=== PATIENT | female | born 1990 | race African-American/Black ===

== ENCOUNTER 2017-11-02 17:02 | Emergency (ER) | payer OTHER ==
--- NOTE | 2017-11-02 18:50 | ER Document Report ---
ED Hand/Wrist Injury - General Chief Complaint: Finger Injury Stated Complaint: RING STUCK ON FINGER Time Seen by Provider: 11/02/17 18:44 Mode of Arrival: Ambulatory Information source: Patient TRAVEL OUTSIDE OF THE [place] IN LAST 30 DAYS: No - HPI Patient complains to provider of: ring stuck on finger Injury to: Ring finger - there was no trauma to finger -- pt just unable to get ring off - Related Data Allergies/Adverse Reactions: No Known Allergies Allergy (Unverified 11/02/17 17:06) Past Medical History - Social History Smoking Status: Smoker,Current Status Unk Chew tobacco use (# tins/day): No Frequency of alcohol use: Occasional Drug Abuse: None Family History: None Patient has suicidal ideation: No Patient has homicidal ideation: No Renal/ Medical History: Denies: Hx Peritoneal Dialysis Review of Systems - Review of Systems Constitutional: No symptoms reported EENT: No symptoms reported Cardiovascular: No symptoms reported Gastrointestinal: No symptoms reported Musculoskeletal: See HPI Physical Exam - Vital signs Vitals: Temp Pulse Resp BP Pulse Ox 98.4 F 85 20 105/64 100 11/02/17 17:07 11/02/17 17:07 11/02/17 17:07 11/02/17 17:07 11/02/17 17:07 - General General appearance: Appears well In distress: None - Extremities Hand: Other - there is a ring on pt's L ring finger which we are unbale to remove manually. There is FROM of the digit and it is N/V intact Course - Re-evaluation Re-evalutation: 11/02/17 18:46 pt felt much better after ring cut off - Vital Signs Vital signs: Temp Pulse Resp BP Pulse Ox 98.4 F 85 20 105/64 100 11/02/17 17:07 11/02/17 17:07 11/02/17 17:07 11/02/17 17:07 11/02/17 17:07 Discharge - Discharge Clinical Impression: Finger injury Qualifiers: Encounter type: initial encounter Laterality: left Qualified Code(s): S69.92XA - Unspecified injury of left wrist, hand and finger(s), initial encounter Condition: Stable Disposition: HOME, SELF-CARE Additional Instructions: rest, return if worse Referrals: ZACK ANDRE MD [ACTIVE STAFF] - Follow up as needed
[2017-11-02] MEDS ORDERED: ONDANSETRON 4 MG TAB.RAPDIS PO ONE (19:17)
[2017-11-02 19:40] VITALS: BP 100/64
== END 2017-11-02 19:39 | disposition home or self-care (01) ==
LOC: ER 17:02
DX: S60.445A External constriction of left ring finger, initial encounter (principal); W49.04XA Ring or other jewelry causing external constriction, initial encounter
CPT/HCPCS: 99283; S0119

== ENCOUNTER 2017-11-13 20:19 | Emergency (ER) | payer OTHER ==
--- NOTE | 2017-11-13 23:11 | RADIOLOGY REPORT (SQ) ---
EXAM DESCRIPTION: CHEST PA/LAT COMPLETED DATE/TIME: 11/13/2017 9:36 pm REASON FOR STUDY: cough COMPARISON: None. EXAM PARAMETERS: NUMBER OF VIEWS: two views TECHNIQUE: Digital Frontal and Lateral radiographic views of the chest acquired. RADIATION DOSE: NA LIMITATIONS: none FINDINGS: LUNGS AND PLEURA: No opacities, masses or pneumothorax. No pleural effusion. MEDIASTINUM AND HILAR STRUCTURES: No masses or contour abnormalities. HEART AND VASCULAR STRUCTURES: Heart normal size. No evidence for failure. BONES: No acute findings. HARDWARE: None in the chest. OTHER: No other significant finding. IMPRESSION: NO SIGNIFICANT RADIOGRAPHIC FINDING IN THE CHEST. TECHNICAL DOCUMENTATION: JOB ID: [id number] [place]-72 2010 [employer]- All Rights Reserved
--- NOTE | 2017-11-13 23:53 | ER Document Report ---
ED Respiratory Problem - General Chief Complaint: Cold Symptoms Stated Complaint: CHEST FEELS HEAVY Time Seen by Provider: 11/13/17 21:17 Mode of Arrival: Ambulatory Information source: Patient Notes: Is a 19-year-old female comes emergency room complaining of upper respiratory symptoms. She complained of chest pain for 3 days which had some increase with deep breathing and a cough. Patient got herself coughing and vomited 1. Patient smokes about a pack cigarettes a day. She denies any other medical problems. Last period was approximately a month ago she is not on control but states she has irregular periods. States that when she lays down she gets to coughing harder. TRAVEL OUTSIDE OF THE [place] IN LAST 30 DAYS: No - HPI Patient complains to provider of: Chest pain, Cough, Hurts to breath Onset: Other Duration: Intermittent episodes Initiating Event: URI Quality of pain: Achy, Fullness, Other - Heavy Severity: Mild Pain Level: 1 Context: Smoker. denies: DVT, Factor V Leiden, Hx asthma, Hx CHF, Hx COPD, Malignancy, , Recent cardiac event, Recent foreign travel, Recent long distance trvl, Recent immobilization, Recent surgery, Other Short of Breath: Mild Chest pain/discomfort: Heaviness, Worse with deep breaths. denies: Center, Constant, Intermittent, Left, Pain, Radiates to arm, Radiates to back, Radiates to jaw, Right, Tightness Cough: Nonproductive Sputum amount: Scant, Small Sputum color: Clear Sputum consistency: Frothy Associated symptoms: Chest pain/discomfort, Congestion, Cough, Hurts to breathe , PND, Runny nose, Sinus pain/pressure, Sore Throat Similar symptoms previously: Yes Recently seen / treated by doctor: No - Related Data Allergies/Adverse Reactions: No Known Allergies Allergy (Verified 11/13/17 22:35) Past Medical History - Social History Smoking Status: Current Every Day Smoker Chew tobacco use (# tins/day): No Frequency of alcohol use: Occasional Drug Abuse: None Family History: None, Reviewed & Not Pertinent Patient has suicidal ideation: No Patient has homicidal ideation: No Renal/ Medical History: Denies: Hx Peritoneal Dialysis Review of Systems - Review of Systems Constitutional: No symptoms reported EENT: Nose congestion, Sinus pressure, Difficulty swallowing Cardiovascular: Chest pain Respiratory: See HPI, Cough, Hurts to breathe, Wheezing Gastrointestinal: No symptoms reported Genitourinary: No symptoms reported Female Genitourinary: No symptoms reported Musculoskeletal: No symptoms reported Skin: No symptoms reported Hematologic/Lymphatic: No symptoms reported Neurological/Psychological: No symptoms reported -: Yes All other systems reviewed and negative Physical Exam - Vital signs Vitals: Temp Pulse Resp BP Pulse Ox 99.2 F 91 16 112/58 L 100 11/13/17 20:40 11/13/17 20:40 11/13/17 20:40 11/13/17 20:40 11/13/17 20:40 Interpretation: Normal - General General appearance: Appears well, Alert In distress: None - HEENT Head: Atraumatic, Open wounds Eyes: Normal Ears: Normal External canal: Normal. No: Blood in canal, Cerumen impaction, Erythema, Foreign body, Swollen, Other Tympanic membrane: Bulging. No: Normal, Hemotympanum, Injected, Loss of landmarks, Perforation, Purulent effusion, Retracted, Serous effusion, Other Sinus: Maxillary, Swelling, Tenderness. No: Normal, Abnormal, Frontal, Mastoid , Redness, Other Nasal: Clear rhinorrhea Mouth/Lips: Normal Mucous membranes: Normal, Moist, Other - Examination had upper airway showed nasal mucosa to be moderately erythematous and edematous with some clear rhinorrhea noted. There is also bilateral nasal congestion noted. Patient displays some maxillary sinus tenderness to palpation and percussion mostly on the right side. Frontal sinuses do not have any response. Bilateral TMs bulging with no air-fluid levels noted. External canals have some cerumen but TMs are visualized without a problem. Further examination of the oral cavity shows that there is moderate amount of erythema throughout the posterior pharynx with mild postnasal drip but is noted in the posterior pharynx. There is no encroachment upon the uvula and airways patent. Pharynx: Erythema, Post nasal drainage. No: Normal, Blood in hypopharynx, Exudate, Peritonsillar abscess, Retropharyngeal abscess, Tonsillar hypertrophy, Uvular edema, Potential airway comprom., Other Neck: Normal. No: Anterior cervical chain, Posterior cervical chain, Brudzinski , Carotid bruit, Kernig's, Lymphadenopathy, Meningismus, Neck mass, Shotty nodes , Subcutaneous emphysema, Supple, Thyroid nodule, Thyromegally, Other - Respiratory Respiratory status: No respiratory distress Chest status: Tender, Pain on movement, Pain with cough, Pain with deep breathing. No: Nontender, Chest mass, Ecchymosis, No pleuritic chest pain, Wounds, Accessory muscle use, Prolonged expirations, Splinting, Other Breath sounds: Decreased air movement, Nonproductive cough, Wheezing, Other - Auscultation patient's lung boothe show she has bilateral breath sounds breath sounds are decreased throughout could be secondary to body habitus but also smokes a pack of cigarettes a day. She has an end expiratory wheeze also noted greater on the right than the left lung boothe. Chest palpation: Tender - Cardiovascular Rhythm: Regular Heart sounds: Normal auscultation Murmur: No - Abdominal Inspection: Normal Distension: No distension, Other Tenderness: Nontender - Neurological Neuro grossly intact: Yes Cognition: Normal Orientation: AAOx4 [place] Coma Scale Eye Opening: Spontaneous Myra Coma Scale Verbal: Oriented Myra Coma Scale Motor: Obeys Commands Kuldip Coma Scale Total: 15 Speech: Normal Cranial nerves: Normal Cerebellar coordination: Normal Motor strength normal: LUE, RUE, LLE, RLE Additional motor exam normals: Equal medical laboratory scientist Course - Vital Signs Vital signs: Temp Pulse Resp BP Pulse Ox 99.2 F 91 16 112/58 L 100 11/13/17 20:40 11/13/17 20:40 11/13/17 20:40 11/13/17 20:40 11/13/17 20:40 - Diagnostic Test Radiology results interpreted by ca: 11/13/17 23:57 Patient had a two-view chest which showed no acute findings. - EKG Interpretation by Mn EKG shows normal: Sinus rhythm Rate: Normal Rhythm: NSR [place]/QRS: No: Right axis deviation, Left axis deviation, RBBB, LBBB, IVCD, LAHB/ LAFB, LPHB/LPFB, Bifasicular block Voltage: No: Increased voltage, Consistant with LVH, Decreased voltage, Throughout, Limb leads Heart block present: No: 1st Degree, Mobitz 1, Mobitz 2, CHB (3rd degree block) Discharge - Discharge Clinical Impression: Bronchitis Upper respiratory infection Qualifiers: URI type: unspecified URI Qualified Code(s): J06.9 - Acute upper respiratory infection, unspecified Condition: Good Disposition: HOME, SELF-CARE Instructions: Acetaminophen, Bronchitis ([facility]), Upper Respiratory Illness ([facility]) , Upper Respiratory Infection, or Child ([facility]) Additional Instructions: Home and rest. Medication as prescribed. Cut back on smoking as much as possible. Should you have any concerns or problems return to ER for recheck. Tylenol alternating with Motrin for aches pains and fever. Prescriptions: Azithromycin [Zithromax] 250 mg PO DAILY #6 tablet Methylprednisolone [Medrol Dosepack (4 mg/Tab) 21 Tab/Dosepak] 4 mg PO ASDIR PRN 6 Days #21 tab.ds.pk PRN Reason: Pseudoephedrine HCl [Sudafed 12-Hour] 120 mg PO BID #20 tablet.er Forms: Smoking Cessation Education
[2017-11-14 00:21] VITALS: BP 106/67
--- NOTE | 2017-11-14 07:52 | EKG REPORT ---
SEVERITY:- NORMAL ECG - SINUS RHYTHM : Confirmed by: Marcos Peck MD 14-Nov-2017 07:52:15
== END 2017-11-14 00:15 | disposition home or self-care (01) ==
LOC: ER 20:19
DX: J02.9 Acute pharyngitis, unspecified (principal); J40 Bronchitis, not specified as acute or chronic; R07.1 Chest pain on breathing; R05 Cough; R11.10 Vomiting, unspecified; R09.82 Postnasal drip; F17.210 Nicotine dependence, cigarettes, uncomplicated; J34.89 Other specified disorders of nose and nasal sinuses; R09.81 Nasal congestion; R13.10 Dysphagia, unspecified; R06.2 Wheezing
CPT/HCPCS: 71020; 93005; 93010; 99283

== ENCOUNTER 2018-05-27 22:28 | Emergency (ER) | payer OTHER ==
[2018-05-28] MEDS ORDERED: PROMETHAZINE HCL 25 MG TABLET PO ONE (00:37)
[2018-05-28] MEDS ORDERED: OXYCODONE-ACETAMINOPHEN 5-325 MG TABLET PO ONE (00:37)
--- NOTE | 2018-05-28 00:39 | ER Document Report ---
ED Medical Screen (RME) - General Chief Complaint: Toothache Stated Complaint: TOOTH ABSCESS Time Seen by Provider: 05/28/18 00:37 Notes: 28-year-old female chief complaint of being diagnosed with a dental abscess yesterday at the dentist, placed on penicillin, states that since then the swelling and pain have worsened. Location is in the right upper jaw. Denies having this in the past, no cavity which was supposed to be filled, no other dental history reported. No other medications. LMP within the past month. TRAVEL OUTSIDE OF THE [place] IN LAST 30 DAYS: No - Related Data Allergies/Adverse Reactions: No Known Allergies Allergy (Verified 11/13/17 22:35) Past Medical History Renal/ Medical History: Denies: Hx Peritoneal Dialysis Physical Exam - Vital signs Vitals: Temp Pulse Resp BP Pulse Ox 99.5 F 99 17 125/74 90 L 05/27/18 22:50 05/27/18 22:50 05/27/18 22:50 05/27/18 22:50 05/27/18 22:50 - HEENT Teeth diagram: 1 - Swollen tender questionably fluctuant area Pharynx: Normal. No: Erythema, Exudate Neck: Normal Course - Vital Signs Vital signs: Temp Pulse Resp BP Pulse Ox 99.5 F 99 17 125/74 90 L 05/27/18 22:50 05/27/18 22:50 05/27/18 22:50 05/27/18 22:50 05/27/18 22:50
[2018-05-28] MEDS ORDERED: CLINDAMYCIN HCL 150 MG CAPSULE PO ONE (02:11)
[2018-05-28] MEDS ORDERED: HYDROCODONE/ACETAMINOPHEN 5-325 MG (6 TAB/ER DISP) PO PRN (02:12)
--- NOTE | 2018-05-28 02:14 | ER Document Report ---
ED Oral Problem - General Chief Complaint: Toothache Stated Complaint: TOOTH ABSCESS Time Seen by Provider: 05/28/18 00:37 Notes: Patient is a 28-year-old female that comes to the ED with chief complaint of being diagnosed with a dental abscess yesterday at the dentist, placed on penicillin, states that since then the swelling and pain have worsened. Location is in the right upper jaw. Denies having this in the past, no cavity which was supposed to be filled, no other dental history reported. No other medications. LMP within the past month. TRAVEL OUTSIDE OF THE [place] IN LAST 30 DAYS: No - Related Data Allergies/Adverse Reactions: No Known Allergies Allergy (Verified 11/13/17 22:35) Past Medical History - Social History Smoking Status: Unknown if Ever Smoked Family History: None, Reviewed & Not Pertinent Patient has suicidal ideation: No Patient has homicidal ideation: No Renal/ Medical History: Denies: Hx Peritoneal Dialysis Review of Systems - Review of Systems Constitutional: No symptoms reported EENT: See HPI Cardiovascular: No symptoms reported Respiratory: No symptoms reported Gastrointestinal: No symptoms reported Genitourinary: No symptoms reported Female Genitourinary: No symptoms reported Musculoskeletal: No symptoms reported Skin: No symptoms reported Hematologic/Lymphatic: No symptoms reported Neurological/Psychological: No symptoms reported Physical Exam - Vital signs Vitals: Temp Pulse Resp BP Pulse Ox 99.5 F 99 17 125/74 90 L 05/27/18 22:50 05/27/18 22:50 05/27/18 22:50 05/27/18 22:50 05/27/18 22:50 Interpretation: Normal - General General appearance: Appears well, Alert In distress: Mild - Patient appears to be in mild pain, no severe distress - HEENT Head: Normocephalic, Atraumatic, Other - Mild right-sided facial swelling at the right upper lip and zygomatic area Eyes: Normal Conjunctiva: Normal Extraocular movements intact: Yes Eyelashes: Normal Pupils: PERRL Ears: Normal Sinus: Normal Nasal: Normal Mouth/Lips: Normal Mucous membranes: Normal Teeth diagram: 1 - Tender, swollen, fluctuant area, remaining oropharyngeal exam is unremarkable except for nearby dental caries Pharynx: Normal Neck: Normal - Respiratory Respiratory status: No respiratory distress Chest status: Nontender Breath sounds: Normal Chest palpation: Normal - Cardiovascular Rhythm: Regular Heart sounds: Normal auscultation Murmur: No - Abdominal Inspection: Normal Distension: No distension Bowel sounds: Normal Tenderness: Nontender Organomegaly: No organomegaly - Back Back: Normal, Nontender - Extremities General upper extremity: Normal inspection, Nontender, Normal color, Normal ROM , Normal temperature General lower extremity: Normal inspection, Nontender, Normal color, Normal ROM , Normal temperature, Normal weight bearing - Neurological Neuro grossly intact: Yes Cognition: Normal Orientation: AAOx4 [place] Coma Scale Eye Opening: Spontaneous Kuldip Coma Scale Verbal: Oriented Kuldip Coma Scale Motor: Obeys Commands [place] Coma Scale Total: 15 Speech: Normal Motor strength normal: LUE, RUE, LLE, RLE Sensory: Normal - Psychological Associated symptoms: Normal affect, Normal mood - Skin Skin Temperature: Warm Skin Moisture: Dry Skin Color: Normal Course - Re-evaluation Re-evalutation: Small dental abscess on examination, this was drained with an 18-gauge needle, patient tolerated this very well, discussed with patient, she reports worsening symptoms after being started on penicillin, should improve after drainage of the abscess but because of her facial swelling after discussion decision was made to place her on clindamycin. Patient already has close dental follow-up arranged. No evidence of Jayden's angina or airway compromise on exam. Discussed return precautions. Patient states understanding and agreement. - Vital Signs Vital signs: Temp Pulse Resp BP Pulse Ox 98.7 F 75 16 128/72 H 98 05/28/18 02:24 05/28/18 02:24 05/28/18 02:24 05/28/18 02:24 05/28/18 02:24 Procedures - Incision and Drainage Right upper gumline Type: Single Blade size: Other - 18-gauge needle Incision Method: Incision made with needle Amount/type of drainage: Moderate amount of purulent drainage and bloody drainage, no complications Discharge - Discharge Clinical Impression: Dental abscess Condition: Stable Disposition: HOME, SELF-CARE Additional Instructions: Abscess has been drained, this will continue to have some bleeding and drainage , swish and spit regularly. Take the clindamycin antibiotic as prescribed, recommend probiotic as well. Follow-up with your dentist for additional evaluation and management to prevent this from happening again. Return if you worsen including increased swelling, difficulty swallowing, fever, or any other concerning or worsening symptoms. Prescriptions: Clindamycin HCl [Cleocin 150 mg Capsule] 150 mg PO Q6 #56 capsule Forms: Return to Work
[2018-05-28 02:25] VITALS: BP 128/72
== END 2018-05-28 02:24 | disposition home or self-care (01) ==
LOC: ER 22:28
PROC: 0C950ZZ Drainage of Upper Gingiva, Open Approach (ICD-10-PCS; principal; 2018-05-27)
DX: K04.7 Periapical abscess without sinus (principal)
CPT/HCPCS: 99283

== ENCOUNTER 2019-04-20 14:41 | Emergency (ER) | payer OTHER ==
--- NOTE | 2019-04-20 15:53 | ER Document Report ---
ED Medical Screen (RME) - General Chief Complaint: Vaginal Bleeding Stated Complaint: VAGINAL BLEEDING Time Seen by Provider: 04/20/19 15:49 TRAVEL OUTSIDE OF THE [place] IN LAST 30 DAYS: No - HPI Notes: 04/20/19 15:52 Patient is a 28-year-old female approximately 15 weeks with a previous and miscarriage who presents complaining of noticing vaginal bleeding this morning that was light in description. Patient states that she does have some pelvic cramping as well. She was started on Flagyl for bacterial vaginosis about 3 days ago. She has no other concerns or complaints. She is urinating normally and having normal bowel movements. Denies RYAN, fever, neck pain, URI, CP, SOB, vomiting/diarrhea, back pain, dysuria, or rash. I have treated and performed a rapid initial assessment of this patient. A comprehensive ED assessment and evaluation of the patient, analysis of test results and completion of medical decision making process will be conducted by additional ED providers. PHYSICAL EXAMINATION: GENERAL: Well-appearing, well-nourished and in no acute distress. A&Ox4. Answers questions appropriately. LUNGS: Breath sounds clear to auscultation bilaterally and equal. No wheezes rales or rhonchi. HEART: Regular rate and rhythm without murmurs, rubs, gallops. ABDOMEN: Soft, nondistended abdomen. No guarding, no rebound. Normal bowel sounds present. No CVA tenderness bilaterally. Grossly nontender (cannot elicit thorough abd exam w/o table, however). Extremities: No cyanosis, clubbing, or edema b/l. NEUROLOGICAL: Normal speech, normal gait. PSYCH: Normal mood, normal affect. - Related Data Allergies/Adverse Reactions: No Known Allergies Allergy (Verified 04/20/19 14:43) Past Medical History Renal/ Medical History: Denies: Hx Peritoneal Dialysis Physical Exam - Vital signs Vitals: Temp Pulse Resp BP Pulse Ox 98.3 F 105 H 20 106/67 98 04/20/19 14:51 04/20/19 14:51 04/20/19 14:51 04/20/19 14:51 04/20/19 14:51 Course - Vital Signs Vital signs: Temp Pulse Resp BP Pulse Ox 98.3 F 105 H 20 106/67 98 04/20/19 14:51 04/20/19 14:51 04/20/19 14:51 04/20/19 14:51 04/20/19 14:51
[2019-04-20 16:20] LABS: ABSOLUTE LYMPHOCYTES (AUTO) 1.6 10^3/uL (0.5-4.7); ABSOLUTE MONOCYTES (AUTO) 0.8 10^3/uL (0.1-1.4); ABSOLUTE NEUT (AUTO) 10.9 10^3/uL (1.7-8.2); BASOPHILS % (AUTO) 0.2 % (0-2); EOSINOPHILS % (AUTO) 0.2 % (0-6); HEMOGLOBIN 12.2 g/dL (12.0-15.5); LYMPHOCYTES % (AUTO) 11.6 % (13-45); MEAN CORPUSCULAR HEMOGLOBIN 28.6 pg (27.0-33.4); MEAN CORPUSCULAR HGB CONC 32.9 g/dL (32.0-36.0); MEAN CORPUSCULAR VOLUME 87 fl (80-97); MONOCYTES % (AUTO) 6.3 % (3-13); PLATELET COUNT 268 10^3/uL (150-450); RED BLOOD COUNT 4.26 10^6/uL (3.72-5.28); RED CELL DISTRIBUTION WIDTH 12.7 % (11.5-14.0); SEGMENTED NEUTROPHILS % (AUTO) 81.7 % (42-78); TOTAL CELLS COUNTED % (AUTO) 100 %; WHITE BLOOD COUNT 13.4 10^3/uL (4.0-10.5)
[2019-04-20 16:28] LABS: APPEARANCE,URINE CLOUDY; BILIRUBIN,URINE SMALL (NEGATIVE); COLOR,URINE AMBER; GLUCOSE, URINE NEGATIVE (NEGATIVE); KETONES,URINE TRACE mg/dL (NEGATIVE); LEUKOCYTE ESTERASE,URINE LARGE (NEGATIVE); NITRITE,URINE NEGATIVE (NEGATIVE); PROTEIN,URINE 100 mg/dL (NEGATIVE); URINE SPECIFIC GRAVITY 1.032
[2019-04-20 16:47] LABS: ANION GAP 12 (5-19); BLOOD UREA NITROGEN 7 mg/dL (7-20); CALCIUM 9.8 mg/dL (8.4-10.2); CARBON DIOXIDE 26 mmol/L (22-30); CHLORIDE 101 mmol/L (98-107); GLUCOSE 71 mg/dL (75-110); POTASSIUM 3.9 mmol/L (3.6-5.0); SODIUM 138.5 mmol/L (137-145)
[2019-04-20 17:02] LABS: ALANINE AMINOTRANSFERASE 22 U/L (9-52); ALBUMIN 3.8 g/dL (3.5-5.0); ALKALINE PHOSPHATASE 64 U/L (38-126); ASPARTATE AMINO TRANSFERASE 21 U/L (14-36); BILIRUBIN,DIRECT 0.2 mg/dL (0.0-0.4); BILIRUBIN,TOTAL 0.2 mg/dL (0.2-1.3); TOTAL PROTEIN 6.8 g/dL (6.3-8.2)
--- NOTE | 2019-04-20 17:13 | RADIOLOGY REPORT (SQ) ---
EXAM DESCRIPTION: U/S OB 14+ TA/1 GEST W/DOPPLER COMPLETED DATE/TIME: 04/20/2019 5:03 pm REASON FOR STUDY: cramping, bleeding, approx 15wks preg COMPARISON: None. TECHNIQUE: Static and Dynamic grayscale imaging performed of gravid uterus using transabdominal appr oach. Additional selected color Doppler and spectral images recorded. All stored on PACS. LIMITATIONS: None. FINDINGS: FETUSES SEEN:1 EGA: 16 weeks 2 days Calculated using BPD,FL,HC,AC documented on images. No discrepancy with clinica l dates. LAURA: 10/03/2019 EFW: 152+/- 22 grams PERCENTILE: Not applicable. Fetus less than or equal to 20 weeks gestation. KANDY: Adequate amount. PLACENTA: Posterior GRADE: I PRESENTATION: Variable. ANATOMY: Not surveyed. HEART RATE: 152 beats per minute. MATERNAL ADNEXA: Maternal ovaries not visualized. CERVICAL LENGTH: 2.7 cm. Closed. OTHER: No other significant finding. IMPRESSION: LIVING INTRAUTERINE . ESTIMATED GESTATIONAL AGE 16 weeks 2 days Trimester of : Second trimester - 13 weeks 1 day to 27 weeks 6 days. TECHNICAL DOCUMENTATION: JOB ID: [id number] [employer]- All Rights Reserved Reading location - IP/workstation name: [email or web address]
--- NOTE | 2019-04-20 17:45 | ER Document Report ---
ED GI/ - General Chief Complaint: Vaginal Bleeding Stated Complaint: VAGINAL BLEEDING Time Seen by Provider: 04/20/19 15:49 Mode of Arrival: Ambulatory Information source: Patient TRAVEL OUTSIDE OF THE [place] IN LAST 30 DAYS: No - HPI Patient complains to provider of: , Vaginal bleeding Notes: 04/20/19 17:45 Patient here with complaints of abdominal cramping and vaginal bleeding. Patient is 16 weeks , G4, P1, one previous miscarriage, one previous . She states that a few days ago she was having some brown discharge and she was seen by her BONDING SUPERVISOR and was diagnosed with bacterial vaginosis. She is currently taking Flagyl. States that the discharge has become more bright red and she passed a clot earlier today so she came in for evaluation. She does report some intermittent lower abdominal cramping. She denies any dysuria. She denies any fevers. No nausea, vomiting, diarrhea. No chest pain or shortness of breath. No rash. No injury. Pain is intermittent, crampy in nature, nothing makes it better or worse. She denies any pain currently. No other complaints at this time. - Related Data Allergies/Adverse Reactions: No Known Allergies Allergy (Verified 04/20/19 14:43) Past Medical History - Social History Smoking Status: Unknown if Ever Smoked Chew tobacco use (# tins/day): No Frequency of alcohol use: None Drug Abuse: None Family History: None, Reviewed & Not Pertinent Patient has suicidal ideation: No Patient has homicidal ideation: No Renal/ Medical History: Denies: Hx Peritoneal Dialysis Past Surgical History: Reports: Hx Gynecologic Surgery - cerclage Review of Systems - Review of Systems -: Yes All other systems reviewed and negative Physical Exam - Vital signs Vitals: Temp Pulse Resp BP Pulse Ox 98.3 F 105 H 20 106/67 98 04/20/19 14:51 04/20/19 14:51 04/20/19 14:51 04/20/19 14:51 04/20/19 14:51 - Notes Notes: gENERAL: alert, cooperative, nontoxic, no distress. HEAD: normocephalic, atraumatic EYES: conjunctiva pink without discharge, no external redness or swelling. EARS: no external swelling, no external redness NOSE: atraumatic, no external swelling MOUTH/THROAT: mucous membranes moist and pink, posterior pharynx without erythema, swelling, exudate. No trismus or drooling. NECK: soft, supple, full range of motion, no meningismus. CHEST: no distress, lungs clear and equal throughout. No wheezing, rales, rhonchi. CARDIAC: regular rate and rhythm, no murmur, normal capillary refill, normal pulses. No peripheral edema noted. ABDOMEN: Soft, nontender. Gravid abdomen. No rebound tenderness or guarding. BACK: full range of motion, no CVA tenderness. EXTREMITIES: full range of motion of all extremities. No redness, no swelling. NEURO: alert and oriented x 3, no focal deficits, full range of motion of all extremities. PYSCH: appropriate mood, affect. Patient is cooperative. SKIN: pink, warm, dry, no rash. Course - Re-evaluation Re-evalutation: 04/20/19 17:46 Patient is nontoxic-appearing with stable vitals. Patient here with complaints of lower abdominal cramping with some brown/red vaginal discharge. Patient is 16 weeks . She was seen by her OB few days ago and had GC chlamydia cultures that were obtained and was diagnosed with VACTERL vaginosis. She is currently taking Flagyl. On exam she has no abdominal tenderness on exam. No CVA tenderness. Urinalysis shows signs of UTI. Urine cultures currently pending. White count minimally elevated at 13. The remainder of the labs are unremarkable. Ultrasound shows a live intrauterine at 16 weeks 2 days with no acute abnormalities. This point the patient overall looks well with a nontoxic, nonfocal exam. Her vitals are stable. Patient will be discharged home on Macrobid for UTI with instructions to follow-up with her BONDING SUPERVISOR at the next available appointment. Follow-up sooner for worsening pain, fever, severe bleeding, persistent vomiting, or for any further concerns. The patient's emergency department workup and current diagnosis were explained to the patient and or family. Follow-up instructions were provided. Medications if prescribed were discussed. Instructions for when to return to the emergency department including specific worrisome symptoms were discussed with the patient and/or family. - Vital Signs Vital signs: Temp Pulse Resp BP Pulse Ox 98.3 F 105 H 20 106/67 98 04/20/19 14:51 04/20/19 14:51 04/20/19 14:51 04/20/19 14:51 04/20/19 14:51 - Laboratory Result Diagrams: 04/20/19 16:03 04/20/19 16:03 Laboratory results interpreted by me: 04/20/19 04/20/19 04/20/19 16:03 16:03 16:03 WBC 13.4 H Seg Neutrophils % 81.7 H Lymphocytes % 11.6 L Absolute Neutrophils 10.9 H Glucose 71 L Urine Protein 100 H Urine Ketones TRACE H Urine Blood LARGE H Urine Bilirubin SMALL H Urine Urobilinogen 2.0 H Ur Leukocyte Esterase LARGE H - Diagnostic Test Radiology reviewed: Image reviewed, Reports reviewed - Ultrasound, 16-week 2-day live intrauterine , no acute findings. Discharge - Discharge Clinical Impression: Vaginal bleeding before 22 weeks gestation UTI (urinary tract infection) Qualifiers: Urinary tract infection type: acute cystitis Hematuria presence: with hematuria Qualified Code(s): N30.01 - Acute cystitis with hematuria Condition: Stable Disposition: HOME, SELF-CARE Instructions: Urinary Tract Infection ([facility]), Bleeding During Early ([facility]) Additional Instructions: Take medications as prescribed. Drink plenty fluids. Follow-up with your BONDING SUPERVISOR at the next available appointment for reevaluation. Follow-up sooner for worsening pain, fever, severe heavy bleeding, persistent vomiting, or for any f urther concerns. Prescriptions: Nitrofurantoin/Nitrofuran Mac [Macrobid 100 mg Capsule] 1 tab PO BID #20 capsule Referrals: [facility] [Provider Group] - Follow up as needed
[2019-04-20 17:52] VITALS: BP 102/55
== END 2019-04-20 17:52 | disposition home or self-care (01) ==
LOC: ER 14:41
DX: O20.9 Hemorrhage in early pregnancy, unspecified (principal); O23.12 Infections of bladder in pregnancy, second trimester; O23.592 Infection of other part of genital tract in pregnancy, second trimester; B96.89 Other specified bacterial agents as the cause of diseases classified elsewhere; O26.892 Other specified pregnancy related conditions, second trimester; R10.30 Lower abdominal pain, unspecified; Z3A.16 16 weeks gestation of pregnancy; Z87.59 Personal history of other complications of pregnancy, childbirth and the puerperium
CPT/HCPCS: 36415; 76805; 80048; 80076; 81001; 84702; 85025; 86900; 86901; 99284

== ENCOUNTER 2019-04-25 04:56 | Emergency (ER) | payer OTHER ==
--- NOTE | 2019-04-25 06:58 | ER Document Report ---
ED GI/ - General Chief Complaint: Vag Bleeding, +preg <12wks Stated Complaint: VAGINAL BLEEDING Time Seen by Provider: 04/25/19 06:16 Mode of Arrival: Ambulatory Information source: Patient, [facility] Records Notes: This 29-year-old female patient who is 17 weeks comes emergency room complaining of vaginal bleeding with clots and lower abdominal pain. She had a cerclage done on 03/31/2019. She was seen at her OBs office on Saturday 8 days ago. At that time she had a brownish vaginal discharge, was diagnosed with bacterial vaginosis and put on Flagyl. 2 days later on 04/20/2019 she came to the emergency room due to the vaginal bleeding becoming reddish blood. She was diagnosed with a UTI. Her urine showed TNTC WBCs, TNTC RBCs, and she was placed on Macrobid. Patient reports the bleeding is been off and on all week, occasionally with blood clots. This morning when she got up and was in the shower she passed a large number of clots and blood so she came to the emergency room to be rechecked. Bedside heart tones are about 145. TRAVEL OUTSIDE OF THE [place] IN LAST 30 DAYS: No - HPI heart tones (bpm): 145 - Related Data Allergies/Adverse Reactions: No Known Allergies Allergy (Verified 04/25/19 04:59) Past Medical History - General Information source: Patient, [facility] Records - Social History Smoking Status: Former Smoker Cigarette use (# per day): No Chew tobacco use (# tins/day): No Smoking Education Provided: No Frequency of alcohol use: None Drug Abuse: None Lives with: Family Family History: None, Reviewed & Not Pertinent Patient has suicidal ideation: No Patient has homicidal ideation: No Past Surgical History: Reports: Hx Gynecologic Surgery - Cervical cerclage on 03/31/2019 Review of Systems - Review of Systems Constitutional: No symptoms reported EENT: No symptoms reported Cardiovascular: No symptoms reported Respiratory: No symptoms reported Gastrointestinal: No symptoms reported Genitourinary: See HPI Female Genitourinary: See HPI, - 17wks Musculoskeletal: No symptoms reported Skin: No symptoms reported Hematologic/Lymphatic: No symptoms reported Neurological/Psychological: No symptoms reported Physical Exam - Vital signs Vitals: Temp Pulse Resp BP Pulse Ox 98.5 F 96 20 106/62 97 04/25/19 05:00 06/01/19 05:00 04/25/19 05:00 04/25/19 05:00 04/25/19 05:00 Interpretation: Normal - General General appearance: Appears well, Alert In distress: None - HEENT Head: Normocephalic, Atraumatic Eyes: Normal Pupils: PERRL - Respiratory Respiratory status: No respiratory distress Breath sounds: Normal - Cardiovascular Rhythm: Regular Heart sounds: Normal auscultation Murmur: No - Abdominal Inspection: Gravid female Bowel sounds: Normal Tenderness: Nontender - Back Back: Normal - Extremities General upper extremity: Normal inspection General lower extremity: Normal inspection - Neurological Neuro grossly intact: Yes - Psychological Associated symptoms: Normal affect, Normal mood - Skin Skin Temperature: Warm Skin Moisture: Dry Skin Color: Normal Course - Vital Signs Vital signs: Temp Pulse Resp BP Pulse Ox 98.5 F 96 20 106/62 97 04/25/19 05:00 04/25/19 05:00 04/25/19 05:00 04/25/19 05:00 04/25/19 05:00 - Laboratory Result Diagrams: 04/25/19 06:45 Laboratory results interpreted by me: 04/25/19 04/25/19 06:45 07:16 WBC 13.1 H Hgb 11.3 L Hct 34.0 L Absolute Neutrophils 10.0 H Urine Blood SMALL H - Consults Dr. Lauren Chávez Time consulted: 08:10 Consulted provider: follow-up in office - Recommends the patient adhere to strict bedrest and keep her appointment on Saturday to start her progesterone shots. Discharge - Discharge Clinical Impression: Vaginal bleeding before 22 weeks gestation Condition: Stable Disposition: HOME, SELF-CARE Additional Instructions: Your urine today does not show any signs of infection. heart tones today were normal. An ultrasound was not necessary since we know you have had the cervical cerclage, we know how far along you are, and we know that you have a normal heart tones today. Drink plenty of fluids. Strict bedrest. Follow-up with your [facility] doctor on Saturday as planned. RETURN TO THE EMERGENCY ROOM IF ANY NEW OR WORSENING SYMPTOMS.
[2019-04-25 07:02] LABS: ABSOLUTE EOSINOPHILS # (AUTO) 0.1 10^3/uL (0.0-0.6); ABSOLUTE LYMPHOCYTES (AUTO) 2.1 10^3/uL (0.5-4.7); ABSOLUTE MONOCYTES (AUTO) 0.9 10^3/uL (0.1-1.4); BASOPHILS % (AUTO) 0.3 % (0-2); EOSINOPHILS % (AUTO) 0.6 % (0-6); HEMOGLOBIN 11.3 g/dL (12.0-15.5); LYMPHOCYTES % (AUTO) 15.8 % (13-45); MEAN CORPUSCULAR HEMOGLOBIN 28.4 pg (27.0-33.4); MEAN CORPUSCULAR HGB CONC 33.3 g/dL (32.0-36.0); MEAN CORPUSCULAR VOLUME 85 fl (80-97); MONOCYTES % (AUTO) 6.7 % (3-13); PLATELET COUNT 263 10^3/uL (150-450); RED BLOOD COUNT 3.98 10^6/uL (3.72-5.28); RED CELL DISTRIBUTION WIDTH 12.5 % (11.5-14.0); SEGMENTED NEUTROPHILS % (AUTO) 76.6 % (42-78); TOTAL CELLS COUNTED % (AUTO) 100 %; WHITE BLOOD COUNT 13.1 10^3/uL (4.0-10.5)
[2019-04-25 07:58] LABS: APPEARANCE,URINE CLEAR; BILIRUBIN,URINE NEGATIVE (NEGATIVE); COLOR,URINE YELLOW; GLUCOSE, URINE NEGATIVE (NEGATIVE); KETONES,URINE NEGATIVE (NEGATIVE); LEUKOCYTE ESTERASE,URINE NEGATIVE (NEGATIVE); NITRITE,URINE NEGATIVE (NEGATIVE); PROTEIN,URINE NEGATIVE (NEGATIVE); URINE SPECIFIC GRAVITY 1.008; UROBILINOGEN,URINE NEGATIVE mg/dL (<2.0)
[2019-04-25 08:41] VITALS: BP 115/55
== END 2019-04-25 08:40 | disposition home or self-care (01) ==
LOC: ER 04:56
DX: O46.92 Antepartum hemorrhage, unspecified, second trimester (principal); R10.30 Lower abdominal pain, unspecified; Z3A.17 17 weeks gestation of pregnancy
CPT/HCPCS: 36415; 51701; 81001; 85025; 99284

== ENCOUNTER 2019-05-06 18:52 | Inpatient (IN) | payer OTHER ==
[~2019-05-06 18:52] MED LIST: SUCCINYLCHOLINE CHLORIDE INJ 200 MG/10 ML VIAL ONE
[2019-05-06 20:50] LABS: ABSOLUTE BASOPHILS # (AUTO) 0.1 10^3/uL (0.0-0.2); ABSOLUTE LYMPHOCYTES (AUTO) 2.1 10^3/uL (0.5-4.7); ABSOLUTE MONOCYTES (AUTO) 0.7 10^3/uL (0.1-1.4); ABSOLUTE NEUT (AUTO) 9.2 10^3/uL (1.7-8.2); BASOPHILS % (AUTO) 0.8 % (0-2); EOSINOPHILS % (AUTO) 0.3 % (0-6); HEMATOCRIT 31.4 % (36.0-47.0); HEMOGLOBIN 10.4 g/dL (12.0-15.5); MEAN CORPUSCULAR HEMOGLOBIN 28.6 pg (27.0-33.4); MEAN CORPUSCULAR HGB CONC 33.2 g/dL (32.0-36.0); MEAN CORPUSCULAR VOLUME 86 fl (80-97); MONOCYTES % (AUTO) 5.9 % (3-13); PLATELET COUNT 307 10^3/uL (150-450); RED BLOOD COUNT 3.65 10^6/uL (3.72-5.28); RED CELL DISTRIBUTION WIDTH 12.8 % (11.5-14.0); TOTAL CELLS COUNTED % (AUTO) 100 %; WHITE BLOOD COUNT 12.2 10^3/uL (4.0-10.5)
--- NOTE | 2019-05-06 21:02 | Admission Physical ---
Datetime Report Generated by CPN: 05/06/2019 21:02 CURRENT ADMISSION Chief Complaint: Other Chief Complaint Other: Appears to be ruptured membranes at 17 weeks. She had a cerclage place previously and Dr Crawley recomends removal of the cerclage, Offer induction andkaryotyping of placenta with culture. Indication for Induction- Other: Nonviable fetus Admit Impression- Other: Oligo, SROM at 17 wks ALLERGIES Medication Allergies: No Known Allergies (04/25/2019) PHYSICAL EXAM General: Normal HEENT: Normal Neurologic: Normal Thyroid: Normal Heart: Normal Lungs: Normal Breast: Deferred Back: Normal Abdomen: Normal Genitourinary Exam: Normal Extremities: Normal DTRs: Normal Pelvic Type: Adequate Vital Signs: Reviewed FETUS A Decelerations: None Presentation: Vertex Admit Comment: Will remove cerclage and proceed with induction as per Dr Crawley and pt wishes. INFORMED CONSENT Signature: with User ID: Constantino
[2019-05-06] MEDS ORDERED: NALBUPHINE HCL INJ 10 MG/1 ML AMPULE ONE (21:18)
[2019-05-06] MEDS ORDERED: NALBUPHINE HCL INJ 10 MG/1 ML AMPULE INJ ONE (21:20)
[2019-05-06 21:30] LABS: APPEARANCE,URINE SLIGHTLY-CLOUDY; BILIRUBIN,URINE NEGATIVE (NEGATIVE); COLOR,URINE YELLOW; GLUCOSE, URINE NEGATIVE (NEGATIVE); KETONES,URINE NEGATIVE (NEGATIVE); LEUKOCYTE ESTERASE,URINE MODERATE (NEGATIVE); NITRITE,URINE NEGATIVE (NEGATIVE); PROTEIN,URINE NEGATIVE (NEGATIVE); URINE SPECIFIC GRAVITY 1.018; UROBILINOGEN,URINE NEGATIVE mg/dL (<2.0)
[2019-05-06 21:43] LABS: URINE AMPHETAMINES SCREEN NEGATIVE; URINE BARBITURATES SCREEN NEGATIVE; URINE BENZODIAZEPINES SCREEN NEGATIVE; URINE COCAINE SCREEN NEGATIVE; URINE MARIJUANA (THC) SCREEN NEGATIVE; URINE METHADONE SCREEN NEGATIVE; URINE PHENCYCLIDINE SCREEN NEGATIVE
[2019-05-06] MEDS ORDERED: ONDANSETRON HCL INJ/PF 4 MG/2 ML SDV IV ONE (23:17)
[2019-05-06] MEDS ORDERED: ONDANSETRON HCL INJ/PF 4 MG/2 ML SDV ONE (23:21)
[2019-05-07] MEDS ORDERED: PROPOFOL INJ 200 MG/20 ML VIAL IV ONE (08:00)
[2019-05-07] MEDS ORDERED: LIDOCAINE 1%/EPINEPHRINE INJ 20 ML VIAL ONE (08:07)
--- NOTE | 2019-05-07 08:54 | OPERATIVE REPORT E ---
Operative Report NAME: AXEL OLMEDO : 1990 AGE: 29Y DATE OF SURGERY: 05/07/2019 ROOM: 213 PREOPERATIVE DIAGNOSIS: IUP at 17 weeks with spontaneous rupture of membranes and prior cervical cerclage. POSTOPERATIVE DIAGNOSIS: IUP at 17 weeks with spontaneous rupture of membranes and prior cervical cerclage. OPERATION: Removal of cerclage. SURGEON: Bj VILLARREAL M.D. ESTIMATED BLOOD LOSS: Negligible. PROCEDURE: The patient was placed in dorsal lithotomy position, prepped and draped in a sterile fashion. A speculum was placed. The cervix was visualized, grasped with a single-tooth tenaculum. The cerclage that was located with the knot at approximately 1 o'clock was grasped and cut and removed. The second had previously been attempted to be removed. I did not see a knot but felt what felt to be a suture underneath the mucosa. Careful dissection found the remnant of the cerclage and it was removed. The patient tolerated the procedure well and was taken to the recovery room in good condition. DICTATING PHYSICIAN: Bj VILLARREAL M.D. [id number] PHY#: [id number] [id number] JOB#: [id number] ACCT: [id number] cc:Bj VILLARREAL M.D. >
[2019-05-07] MEDS ORDERED: MISOPROSTOL 0.2 MG TABLET VG ONE (09:42)
[2019-05-07] MEDS ORDERED: MISOPROSTOL 0.2 MG TABLET ONE ×2 (09:44→18:31)
[2019-05-07] MEDS ORDERED: IBUPROFEN 800 MG TABLET PO SCH (09:45)
[2019-05-07] MEDS ORDERED: IBUPROFEN 800 MG TABLET PO PRN ×2 (10:00→12:00)
[2019-05-07] MEDS: ACETAMINOPHEN 325 MG TABLET PO PRN ×2 (14:49→23:36)
[2019-05-07] MEDS: IBUPROFEN 800 MG TABLET PO SCH (17:46)
[2019-05-07] MEDS: RINGERS SOLUTION,LACTATED 1,000 ML IV PRN (20:29)
[2019-05-08] MEDS: IBUPROFEN 800 MG TABLET PO SCH ×3 (02:56→17:34)
[2019-05-08] MEDS ORDERED: MISOPROSTOL 0.2 MG TABLET ONE ×4 (07:40→19:36)
[2019-05-08] MEDS ORDERED: MISOPROSTOL 0.2 MG TABLET PR ONE (14:05)
[2019-05-08] MEDS: RINGERS SOLUTION,LACTATED 1,000 ML IV PRN (14:21)
--- NOTE | 2019-05-08 15:42 | PDOC PROGRESS REPORT ---
Subjective Progress Note for:: 05/08/19 Subjective:: denies cramping Reason For Visit: 17w PPROM Physical Exam - Physical Exam Vital Signs: Temp Pulse Resp BP Pulse Ox 98.1 F 91 15 126/64 H 98 05/08/19 12:26 05/08/19 12:26 05/08/19 12:26 05/08/19 12:26 05/08/19 12:26 Intake & Output 05/07/19 05/08/19 05/09/19 06:59 06:59 06:59 Intake Total 3250 550 Output Total 7 Balance 3243 550 General appearance: PRESENT: no acute distress Psychiatric exam: PRESENT: appropriate affect - Gynecological Exam Vagina: other - small bleeding Cervix: other - 1cm Result Laboratory Results: 05/06/19 20:16 Assessment & Plan - Diagnosis (1) Rupture of membranes with delay of delivery Is this a current diagnosis for this admission?: Yes - Inpatient Certification Based on my medical assessment, after consideration of the patient's comorbidities, presenting symptoms, or acuity I expect that the services needed warrant INPATIENT care.: Yes Medical Necessity: Risk of Complication if Not Cared For in Hospital - Plan Summary Plan Summary: cytotec 800mcg pr placed per dr temple request
[2019-05-08] MEDS ORDERED: MORPHINE SULFATE 10 MG/ML INJ ONE (15:51)
[2019-05-08] MEDS ORDERED: MORPHINE SULFATE 10 MG/ML INJ IV ONE (16:30)
[2019-05-08] MEDS: OXYCODONE-ACETAMINOPHEN 5-325 MG TABLET PO PRN (16:37)
--- NOTE | 2019-05-08 17:16 | PDOC PROGRESS REPORT ---
Subjective Progress Note for:: 05/08/19 Subjective:: undergoing induction due to anhydramnios and previable at 17+1ega Reason For Visit: , Anhydramnios, Previable PROM at 17wks. Physical Exam - Physical Exam Vital Signs: Temp Pulse Resp BP Pulse Ox 98.0 F 84 15 93/43 L 98 05/08/19 15:49 05/08/19 15:49 05/08/19 15:49 05/08/19 15:49 05/08/19 15:49 Intake & Output 05/07/19 05/08/19 05/09/19 06:59 06:59 06:59 Intake Total 3250 550 Output Total 7 Balance 3243 550 General appearance: PRESENT: no acute distress, well-developed, well-nourished Head exam: PRESENT: atraumatic, normocephalic Neck exam: PRESENT: full ROM. ABSENT: carotid bruit, JVD, lymphadenopathy, thyromegaly Respiratory exam: PRESENT: clear to auscultation rashawn, symmetrical, unlabored Cardiovascular exam: PRESENT: bradycardia GI/Abdominal exam: PRESENT: normal bowel sounds, soft. ABSENT: distended, guarding, mass, organolmegaly, rebound, tenderness Rectal exam: PRESENT: deferred Extremities exam: PRESENT: full ROM. ABSENT: calf tenderness, clubbing, pedal edema Neurological exam: PRESENT: alert, awake, oriented to person, oriented to place, oriented to time, oriented to situation, CN II-XII grossly intact. ABSENT: motor sensory deficit Skin exam: PRESENT: dry, intact, warm. ABSENT: cyanosis, rash - Gynecological Exam Vagina: other - small bleeding Cervix: other - 1cm Result Laboratory Results: 05/06/19 20:16 Status: Imported from PACS Assessment & Plan - Diagnosis (1) Antepartum anhydramnios Is this a current diagnosis for this admission?: Yes Plan: Spoke with admitting provider, DEVORA SPICER that evaluated the patient in the office on 05/06/2019. Spoke with Dr. Kathy Crawley with [facility] as well. Plan from 05/06/2019 at follows: DEVORA and Dr. Dietz reviewed with patient and Dr. Crawley regarding +FHR on 05/06/2019 and due to anhydramnios with Previable PROM and remote from viability induction was recommended and discussed with the patient by the providers on 05/06 and she desired to proceed with removal of cerclage and proceed with induction. Remove cerclage due to Anhydramnios and previable PROM - - Dr. Dietz attempted to remove cerclage on 05/06 but unable to completely remove cerclage therefore patient was NPO and Dr. Hong removed cerclage in am on 05/07. per Dr. Crawley - needs amnion and chorion karyotype - will obtain from the placenta after delivery. She has been receiving cytotec 400mcg q 4-6 hours per vagina since cerclage removal. Reviewed with patient that plan for cytotec 800mcg per vagina q 6 hours and if no deliver by am then will give a break and watch for infection. No e/o infection at this time. Per Dr. Crawley recommend Z pack post delivery. (2) Rupture of membranes with delay of delivery Is this a current diagnosis for this admission?: Yes Plan: see above - Time Time Spent with patient: 15-24 minutes Medications reviewed and adjusted accordingly: Yes Anticipated discharge: Home Within: within 48 hours - Inpatient Certification Based on my medical assessment, after consideration of the patient's anette rbidities, presenting symptoms, or acuity I expect that the services needed warrant INPATIENT care.: Yes I certify that my determination is in accordance with my understanding of Medicare's requirements for reasonable and necessary INPATIENT services [42 CFR 412.3e].: Yes Medical Necessity: Need Close Monitoring Due to Risk of Patient Decompensation, Need For IV Fluids, Need for Pain Control Post Hospital Care: D/C Latin Teacher Documentation - Plan Summary Plan Summary: land use planner consult placed
[2019-05-08] MEDS ORDERED: HYDROMORPHONE HCL INJ/PF 2 MG/ML AMPULE IV ONE ×2 (17:30→19:30)
[2019-05-08] MEDS: HYDROMORPHONE HCL INJ/PF 2 MG/ML AMPULE ONE ×2 (17:33→20:32)
[2019-05-08] MEDS ORDERED: HYDROMORPHONE HCL INJ/PF 2 MG/ML AMPULE ONE (18:32)
[2019-05-08 19:12] LABS: ABSOLUTE EOSINOPHILS # (AUTO) 0.1 10^3/uL (0.0-0.6); ABSOLUTE LYMPHOCYTES (AUTO) 2.4 10^3/uL (0.5-4.7); ABSOLUTE MONOCYTES (AUTO) 0.7 10^3/uL (0.1-1.4); ABSOLUTE NEUT (AUTO) 6.1 10^3/uL (1.7-8.2); BASOPHILS % (AUTO) 0.4 % (0-2); EOSINOPHILS % (AUTO) 0.9 % (0-6); HEMATOCRIT 25.7 % (36.0-47.0); HEMOGLOBIN 8.7 g/dL (12.0-15.5); MEAN CORPUSCULAR HGB CONC 33.8 g/dL (32.0-36.0); MEAN CORPUSCULAR VOLUME 86 fl (80-97); PLATELET COUNT 255 10^3/uL (150-450); RED BLOOD COUNT 2.99 10^6/uL (3.72-5.28); RED CELL DISTRIBUTION WIDTH 12.6 % (11.5-14.0); SEGMENTED NEUTROPHILS % (AUTO) 65.7 % (42-78); TOTAL CELLS COUNTED % (AUTO) 100 %; WHITE BLOOD COUNT 9.4 10^3/uL (4.0-10.5)
[2019-05-08] MEDS ORDERED: KETAMINE HCL INJ 500 MG/10 ML VIAL ONE (19:13)
[2019-05-08] MEDS ORDERED: FENTANYL CITRATE INJ/PF 100 MCG/2 ML AMPUL ONE (19:14)
[2019-05-08] MEDS ORDERED: MIDAZOLAM 2 MG/2 ML INJ ONE (19:14)
[2019-05-08] MEDS ORDERED: ONDANSETRON HCL INJ/PF 4 MG/2 ML SDV ONE (19:14)
[2019-05-08] MEDS ORDERED: PROPOFOL INJ 200 MG/20 ML VIAL IV ONE (19:14)
[2019-05-08] MEDS ORDERED: METHYLERGONOVINE MALEATE INJ/PF 0.2 MG/1 ML AMPULE ONE (19:36)
[2019-05-08] MEDS ORDERED: FENTANYL CITRATE INJ/PF 100 MCG/2 ML AMPUL IV PRN ×3 (20:06)
[2019-05-08] MEDS ORDERED: PROMETHAZINE HCL INJ 25 MG/1 ML VIAL IV PRN (20:06)
[2019-05-08] MEDS ORDERED: MEPERIDINE HCL/PF INJ 25 MG/1 ML DISP.SYRIN IV PRN (20:06)
[2019-05-08] MEDS ORDERED: MORPHINE SULFATE 10 MG/ML INJ IV PRN (20:06)
[2019-05-08] MEDS ORDERED: DIPHENHYDRAMINE HCL 50 MG/ML VIAL IV PRN (20:06)
[2019-05-08] MEDS ORDERED: DOXYCYCLINE HYCLATE 100 MG in DEXTROSE 5%-WATER 250 ML IV ONE (21:15)
[2019-05-08 22:30] LABS: HEMATOCRIT 29.2 % (36.0-47.0); HEMOGLOBIN 9.7 g/dL (12.0-15.5); MEAN CORPUSCULAR HEMOGLOBIN 28.9 pg (27.0-33.4); MEAN CORPUSCULAR HGB CONC 33.3 g/dL (32.0-36.0); MEAN CORPUSCULAR VOLUME 87 fl (80-97); PLATELET COUNT 224 10^3/uL (150-450); RED BLOOD COUNT 3.37 10^6/uL (3.72-5.28); RED CELL DISTRIBUTION WIDTH 12.8 % (11.5-14.0); WHITE BLOOD COUNT 18.2 10^3/uL (4.0-10.5)
[2019-05-08 22:48] LABS: PARTIAL THROMBOPLASTIN TIME 28.9 SEC (23.5-35.8); PROTHROMBIN TIME 13.8 SEC (11.4-15.4)
[2019-05-08] MEDS ORDERED: METHYLERGONOVINE MALEATE INJ/PF 0.2 MG/1 ML AMPULE IM ONE (22:51)
[2019-05-08] MEDS ORDERED: HYDROMORPHONE HCL INJ/PF 2 MG/ML AMPULE IV PRN (22:53)
--- NOTE | 2019-05-08 23:32 | Brief Operative Note ---
BRIEF OPERATIVE REPORT DATE OF SURGERY: 05/08/19 TIME OF SURGERY: 21:00 PREOPERATIVE DIAGNOSIS: S/p delivery of Non viable 17wks fetus, retained placenta, hemorrhage POSTOPERATIVE DIAGNOSIS: laurie SURGEON: TRAM DESAI FINDINGS: placenta retained in the lower uterine segment and some POC in the uterine fundus, Banjo and manual removal. Significant lower uterine segment atony resolved with methergine and uterine massage. Doxycyline 100mg IV ordered for PACU. PRBCs 1 unit started in the OR due to hemorrhage COMPLICATIONS: hemorrhage ESTIMATED BLOOD LOSS: 600ml TISSUE REMOVED OR ALTERED: placenta and cord sent to pathology, Amnion/chorion biopsy taken and sent to pathology for karyotype, maternal/ side cultures of the placenta performed. TECHNICAL PROCEDURE: Removal of retained placenta and curettage
[2019-05-09] MEDS: OXYCODONE-ACETAMINOPHEN 5-325 MG TABLET PO PRN ×4 (00:13→22:25)
--- NOTE | 2019-05-09 00:18 | Operative Report ---
Operative Report DATE OF SURGERY: 05/08/19 PREOPERATIVE DIAGNOSIS: S/p delivery of Non viable 17wks fetus, retained placen ta, hemorrhage POSTOPERATIVE DIAGNOSIS: laurie OPERATION: Removal of retained placenta and curettage SURGEON: TRAM DESAI ANESTHESIA: GA TISSUE REMOVED OR ALTERED: placenta and cord sent to pathology, Amnion/chorion biopsy taken and sent to pathology for karyotype, maternal/ side cultures of the placenta performed. COMPLICATIONS: lower uterine segment atony and hemorrhage ESTIMATED BLOOD LOSS: 600ml (1277ml in delivery room 213) total 1877ml for delivery and surgery INTRAOPERATIVE FINDINGS: placenta retained in the lower uterine segment and some POC in the uterine fundus, Banjo and manual removal. Significant lower uterine segment atony resolved with methergine and uterine massage. Doxycyline 100mg IV ordered for PACU. PRBCs 1 unit started in the OR due to hemorrhage PROCEDURE: Anesthesia: [Malik Hugo REFRIGERATION ENGINEERING TEACHER] IVF: [600ml] UOP: [325ml] Indications: [29yo at 17+3ega diagnosed with anhydramnios and previable rupture of membranes on 05/06/2019. She underwent cerclage removal on 05/[address] Hong. 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 She received 17OHP during this as well with serial cervix lengths. She received cytotec 400mcg q 4-6 hours yesterday then today 800mcg per rectum and within approximately 30 minutes began having cramping. She delivered nonviable demise at 1818 and then within 15-20 minutes placenta had not delivered and she was noted to have significant bleeding. She was consented and taken urgently to the OR. QBL for delivery on prior to the procedure was 1277ml.] Procedure: The patient was taken to the Operating Room where general anesthesia was obtained without difficulty. She was prepped and draped in the normal sterile fashion in the dorsal lithotomy position. Exam under anesthesia was performed and noted above. A speculum was placed in the vagina. The anterior cervix was grasped with a ring forceps and the cervix was noted to be open approximately 2-3cm. The placenta was then removed from the vagina and lower uterine segment and banjo curett was used to remove remaining POC from the uterus. The fundus was firm but the lower uterine segment was still dilated and boggy. Intrauterine methergine given into lower uterine segment. Uterine massage after methergine administration improved uterine tone and caused cessation of the bleeding. 8 mm curved suction curet was then gently advanced in the usual fashion to clear the uterus of any remaining products of conception. The suction device was then activated and the curett rotated to clear the uterus of the products of conception. The sharp curettage was then performed again until a gritty texture was noted and the cavity was felt to be empty of further tissue. At this time there was minimal bleeding noted from the cervix. All instruments were removed from the patient's cervix and vagina. Sponge lap needle and instrument counts are correct 2. Doxycycline 100 mg IV was given in the PACU. The patient tolerated the procedure well and was taken to the recovery area awake and in stable condition.
[2019-05-09] MEDS ORDERED: METHYLERGONOVINE MALEATE 0.2 MG TABLET ONE ×3 (02:08→21:41)
[2019-05-09] MEDS: IBUPROFEN 800 MG TABLET PO SCH ×3 (02:14→17:23)
[2019-05-09] MEDS: METHYLERGONOVINE MALEATE 0.2 MG TABLET PO SCH ×6 (02:15→21:44)
[2019-05-09] MEDS: CEFAZOLIN 2 GM/D5W RTU 2 GM/50 ML RTUPB IV SCH ×3 (05:59→20:09)
[2019-05-09] MEDS: RINGERS SOLUTION,LACTATED 1,000 ML IV PRN (06:00)
[2019-05-09 07:35] LABS: ABSOLUTE LYMPHOCYTES (AUTO) 2.2 10^3/uL (0.5-4.7); ABSOLUTE MONOCYTES (AUTO) 0.9 10^3/uL (0.1-1.4); ABSOLUTE NEUT (AUTO) 8.9 10^3/uL (1.7-8.2); BASOPHILS % (AUTO) 0.2 % (0-2); EOSINOPHILS % (AUTO) 0.4 % (0-6); HEMATOCRIT 26.1 % (36.0-47.0); LYMPHOCYTES % (AUTO) 18.3 % (13-45); MEAN CORPUSCULAR HEMOGLOBIN 29.5 pg (27.0-33.4); MEAN CORPUSCULAR HGB CONC 34.4 g/dL (32.0-36.0); MEAN CORPUSCULAR VOLUME 86 fl (80-97); MONOCYTES % (AUTO) 7.2 % (3-13); PLATELET COUNT 218 10^3/uL (150-450); RED BLOOD COUNT 3.04 10^6/uL (3.72-5.28); RED CELL DISTRIBUTION WIDTH 12.9 % (11.5-14.0); SEGMENTED NEUTROPHILS % (AUTO) 73.9 % (42-78); TOTAL CELLS COUNTED % (AUTO) 100 %
--- NOTE | 2019-05-09 09:56 | PDOC DISCHARGE SUMMARY ---
General - Admit/Disc Date/PCP Admission Date/Primary Care Provider: 05/06/19 19:50 Discharge Date: 05/09/19 - Discharge Diagnosis (1) Acute blood loss anemia Is this a current diagnosis for this admission?: Yes (2) Antepartum anhydramnios Is this a current diagnosis for this admission?: Yes (3) demise, less than 22 weeks, delivered, current hospitalization Is this a current diagnosis for this admission?: Yes (4) hemorrhage, third stage, delivered Is this a current diagnosis for this admission?: Yes (5) Rupture of membranes with delay of delivery Is this a current diagnosis for this admission?: Yes (6) Transfusion of blood during current hospitalisation Is this a current diagnosis for this admission?: Yes - Additional Information Resuscitation Status: Full Code Home Medications: No Home Medications 05/07/19 History of Present Illness Patient complains of: pt admitted with ruptured membranes at 17 weeks History of Present Illness: AXEL OLMEDO is a 29 year old female Hospital Course Hospital Course: pt admitted with srom and had previous placed cerclage removed and given cytotec to affect delivery. post delivery hemorrhage and had a D&C and blood transfusion. post op pt has done well tolearating regular diet and not symptomatic Physical Exam - Physical Exam Vital Signs: Temp Pulse Resp BP Pulse Ox 97.8 F 89 15 108/55 L 100 05/09/19 07:58 05/09/19 07:58 05/09/19 07:58 05/09/19 07:58 05/09/19 07:58 Intake & Output 05/08/19 05/09/19 05/10/19 06:59 06:59 06:59 Intake Total 3250 3210 50 Output Total 7 1240 400 Balance 3243 1970 -350 General appearance: PRESENT: no acute distress Respiratory exam: PRESENT: clear to auscultation rashawn GI/Abdominal exam: PRESENT: soft - Gynecological Exam Vagina: other - small bleeding Cervix: other - 1cm Result Laboratory Results: 05/09/19 07:22 05/06/19 05/08/19 05/08/19 20:16 19:00 22:20 WBC 9.4 18.2 H RBC 2.99 L 3.37 L Hgb 8.7 L 9.7 L Hct 25.7 L 29.2 L MCV 86 87 MCH 29.0 28.9 MCHC 33.8 33.3 RDW 12.6 12.8 Plt Count 255 224 Seg Neutrophils % 65.7 Lymphocytes % 26.0 Monocytes % 7.0 Eosinophils % 0.9 Basophils % 0.4 Absolute Neutrophils 6.1 Absolute Lymphocytes 2.4 Absolute Monocytes 0.7 Absolute Eosinophils 0.1 Absolute Basophils 0.0 Blood Type B POSITIVE Antibody Screen NEGATIVE 05/09/19 07:22 WBC 12.0 H RBC 3.04 L Hgb 9.0 L Hct 26.1 L MCV 86 MCH 29.5 MCHC 34.4 RDW 12.9 Plt Count 218 Seg Neutrophils % 73.9 Lymphocytes % 18.3 Monocytes % 7.2 Eosinophils % 0.4 Basophils % 0.2 Absolute Neutrophils 8.9 H Absolute Lymphocytes 2.2 Absolute Monocytes 0.9 Absolute Eosinophils 0.0 Absolute Basophils 0.0 Blood Type Antibody Screen Plan Discharge Plan: dc f/u 1 week Time Spent: Less than 30 Minutes Acute Heart Failure - Is this a Heart Failure Patient?: No
[2019-05-09 12:35] LABS: CHLAM PCR NOT DETECTED (NOT DETECT); GON PCR NOT DETECTED (NOT DETECT)
[2019-05-09] MEDS ORDERED: ONDANSETRON HCL INJ/PF 4 MG/2 ML SDV ONE (13:28)
[2019-05-09 14:30] LABS: ABSOLUTE EOSINOPHILS # (AUTO) 0.1 10^3/uL (0.0-0.6); ABSOLUTE LYMPHOCYTES (AUTO) 2.1 10^3/uL (0.5-4.7); ABSOLUTE MONOCYTES (AUTO) 0.7 10^3/uL (0.1-1.4); ABSOLUTE NEUT (AUTO) 7.6 10^3/uL (1.7-8.2); BASOPHILS % (AUTO) 0.5 % (0-2); HEMOGLOBIN 8.1 g/dL (12.0-15.5); LYMPHOCYTES % (AUTO) 20.3 % (13-45); MEAN CORPUSCULAR HGB CONC 33.7 g/dL (32.0-36.0); MEAN CORPUSCULAR VOLUME 86 fl (80-97); MONOCYTES % (AUTO) 6.7 % (3-13); PLATELET COUNT 207 10^3/uL (150-450); RED BLOOD COUNT 2.79 10^6/uL (3.72-5.28); RED CELL DISTRIBUTION WIDTH 12.8 % (11.5-14.0); SEGMENTED NEUTROPHILS % (AUTO) 71.5 % (42-78); TOTAL CELLS COUNTED % (AUTO) 100 %; WHITE BLOOD COUNT 10.6 10^3/uL (4.0-10.5)
[2019-05-09] MEDS ORDERED: RINGERS SOLUTION,LACTATED 500 ML IV ONE (14:45)
[2019-05-10] MEDS: CEFAZOLIN 2 GM/D5W RTU 2 GM/50 ML RTUPB IV SCH ×2 (02:09→06:53)
[2019-05-10] MEDS: METHYLERGONOVINE MALEATE 0.2 MG TABLET PO SCH ×3 (02:09→10:23)
[2019-05-10] MEDS: IBUPROFEN 800 MG TABLET PO SCH ×2 (02:16→10:23)
[2019-05-10] MEDS: OXYCODONE-ACETAMINOPHEN 5-325 MG TABLET PO PRN (06:57)
--- NOTE | 2019-05-10 08:57 | PDOC PROGRESS REPORT ---
Subjective Progress Note for:: 05/10/19 Subjective:: pt was discharged yesterday then became dizzy and orthostatic, therefore discharge was cancelled by Dr. Hong and transfusion given at 1659. Reason For Visit: , demise, cerclage removal, Previable PROM, D&C, transfusion Physical Exam - Physical Exam Vital Signs: Temp Pulse Resp BP Pulse Ox 98.0 F 95 16 115/59 L 100 05/10/19 08:04 05/10/19 08:04 05/10/19 08:04 05/10/19 08:04 05/10/19 08:04 Intake & Output 05/09/19 05/10/19 05/11/19 06:59 06:59 06:59 Intake Total 3210 500 Output Total 1240 700 Balance 1970 -200 Weight 96.071 kg General appearance: PRESENT: no acute distress, well-developed, well-nourished Head exam: PRESENT: atraumatic, normocephalic Eye exam: PRESENT: conjunctiva pink Neck exam: PRESENT: full ROM. ABSENT: carotid bruit, JVD, lymphadenopathy, thyromegaly Respiratory exam: PRESENT: clear to auscultation rashawn, symmetrical, unlabored Cardiovascular exam: PRESENT: RRR. ABSENT: diastolic murmur, rubs, systolic mur mur GI/Abdominal exam: PRESENT: normal bowel sounds, soft. ABSENT: distended, guarding, mass, organolmegaly, rebound, tenderness Rectal exam: PRESENT: deferred Extremities exam: PRESENT: full ROM. ABSENT: calf tenderness, clubbing, pedal edema Neurological exam: PRESENT: alert, awake, oriented to person, oriented to place, oriented to time, oriented to situation, CN II-XII grossly intact. ABSENT: motor sensory deficit Psychiatric exam: PRESENT: other - tearful Skin exam: PRESENT: dry, intact, warm. ABSENT: cyanosis, rash - Gynecological Exam Vagina: other - small bleeding Cervix: other - 1cm Result Laboratory Results: 05/09/19 14:15 05/06/19 05/09/19 20:16 14:15 WBC 10.6 H RBC 2.79 L Hgb 8.1 L Hct 24.0 L MCV 86 MCH 29.0 MCHC 33.7 RDW 12.8 Plt Count 207 Seg Neutrophils % 71.5 Lymphocytes % 20.3 Monocytes % 6.7 Eosinophils % 1.0 Basophils % 0.5 Absolute Neutrophils 7.6 Absolute Lymphocytes 2.1 Absolute Monocytes 0.7 Absolute Eosinophils 0.1 Absolute Basophils 0.0 Blood Type B POSITIVE Antibody Screen NEGATIVE Status: Imported from PACS Assessment & Plan - Diagnosis (1) Antepartum anhydramnios Is this a current diagnosis for this admission?: Yes Plan: from 05/08 note: Spoke with admitting provider, DEVORA SPICER that evaluated the patient in the office on 05/06/2019. Spoke with Dr. Kathy Crawley with [facility] as well. Plan from 05/06/2019 at follows: DEVORA and Dr. Dietz reviewed with patient and Dr. Crawley regarding +FHR on 05/06/2019 and due to anhydramnios with Previable PROM and remote from viability induction was recommended and discussed with the patient by the providers on 05/06 and she desired to proceed with removal of cerclage and proceed with induction. Remove cerclage due to Anhydramnios and previable PROM - - Dr. Dietz attempted to remove cerclage on 05/06 but unable to completely remove cerclage therefore patient was NPO and Dr. Hong removed cerclage in am on 05/07. per Dr. Crawley - needs amnion and chorion karyotype - will obtain from the placenta after delivery. She has been receiving cytotec 400mcg q 4-6 hours per vagina since cerclage removal. Reviewed with patient that plan for cytotec 800mcg per vagina q 6 hours and if no deliver by am then will give a break and watch for infection. No e/o infection at this time. Per Dr. Crawley recommend Z pack post delivery. 05/09 Pt delivered on 05/08 non viable demise at 1818 and had retained placenta and began significantly bleeding within 30 minutes of delivery. Patient taken urgently to OR for removal of placenta and D&C. Transfusion one unit PRBCs started in PACU. Placenta maternal and side cultured in OR and biopsies of Amnion/Chorion for karyotype taken by myself and sent from OR. Placenta also sent for pathology. Fetus sent for gross exam - parents are considering burial/cremation plans. Dr. Hong discharged patient in afternoon of 05/08 then when patient was being discharged she began to have dizziness and symptomatic from anemia. Dr. Hong cancelled discharge and ordered transfusion of 1 unit of blood. 05/10 Patient now asymptomatic and doing well from anemia standpoint She is tearful and understandably upset. finished goods planner has seen patient. She denies SI/HI and desires to go home She declines medications for anxiety depression. (2) Rupture of membranes with delay of delivery Is this a current diagnosis for this admission?: Yes Plan: see above (3) demise, less than 22 weeks, delivered, current hospitalization Is this a current diagnosis for this admission?: Yes Plan: Delivery of non viable demise at 1818, cord doubly clamped and cut and cytotec 1000mcg CO placed for delivery of the placenta. Within 15 minutes the the placenta had not delivered but patient noted to have significant bleeding and hemorrhage. Stat CBC ordered at 1700 still not done - lab asked to draw stat and Type and cross and hold for 2 units. Consented for D&C and reviewed need to proceed with OR and D&C QBL for delivery - 1277ml then QBL from OR 600ml. (4) hemorrhage, third stage, delivered Is this a current diagnosis for this admission?: Yes Plan: Retained placenta with pph to OR for urgent Dilation and curettage and removal of retained placenta (5) Acute blood loss anemia Is this a current diagnosis for this admission?: Yes Plan: blood loss from delivery and operation appears to be pp hemorrhage QBL from delivery and retained placenta and surgery - - - 1877ml (see operative report) (6) Cervical cerclage suture present in first trimester Is this a current diagnosis for this admission?: Yes Plan: cerclage placed 03/27 and removed on 05/07 due to anhydramnios and Previable PROM (7) Transfusion of blood during current hospitalisation Is this a current diagnosis for this admission?: Yes Plan: Transfusion of 2 units PRBCs will send patient home on iron/colace (8) Grief associated with loss of fetus Is this a current diagnosis for this admission?: Yes Plan: see above. finished goods planner done pt declines meds at this time. - Time Time Spent with patient: 15-24 minutes Medications reviewed and adjusted accordingly: Yes Anticipated discharge: Home Within: within 24 hours - Inpatient Certification Based on my medical assessment, after consideration of the patient's comorbidities, presenting symptoms, or acuity I expect that the services needed warrant INPATIENT care.: No I certify that my determination is in accordance with my understanding of Medicare's requirements for reasonable and necessary INPATIENT services [42 CFR 412.3e].: No Post Hospital Care: D/C [employer] Developer Documentation - Plan Summary Plan Summary: Discharge to home with f/u in 1 wks
--- NOTE | 2019-05-10 09:03 | PDOC DISCHARGE SUMMARY ---
Final Diagnosis Discharge Date: 05/10/19 - Final Diagnosis (1) Antepartum anhydramnios Is this a current diagnosis for this admission?: Yes (2) Rupture of membranes with delay of delivery Is this a current diagnosis for this admission?: Yes (3) demise, less than 22 weeks, delivered, current hospitalization Is this a current diagnosis for this admission?: Yes (4) hemorrhage, third stage, delivered Is this a current diagnosis for this admission?: Yes (5) Acute blood loss anemia Is this a current diagnosis for this admission?: Yes (6) Grief associated with loss of fetus Is this a current diagnosis for this admission?: Yes (7) Cervical cerclage suture present in first trimester Is this a current diagnosis for this admission?: Yes (8) Transfusion of blood during current hospitalisation Is this a current diagnosis for this admission?: Yes Discharge Data - Discharge Medication Prescriptions: Acetaminophen [Tylenol 325 mg Tablet] 650 mg PO Q4HP PRN 10 Days #28 tablet PRN Reason: For Headache Or Pain Oxycodone HCl/Acetaminophen [Percocet 5-325 mg Tablet] 2 tab PO Q4HP PRN 28 Days #7 tablet PRN Reason: For Pain Azithromycin [Zithromax 250 mg Tablet] 500 mg PO BID 6 Days #12 tab Docusate Sodium [Colace 100 mg Capsule] 100 mg PO BID 30 Days #60 capsule Ferrous Sulfate 325 mg PO BID 30 Days #60 tablet. Ibuprofen [Motrin 800 mg Tablet] 800 mg PO Q8A #90 tablet Home Medications: Ibuprofen [Motrin 800 mg Tablet] 800 mg PO Q8A #90 tablet 05/09/19 Acetaminophen [Tylenol 325 mg Tablet] 650 mg PO Q4HP PRN 10 Days #28 tablet 05/10/19 Azithromycin [Zithromax 250 mg Tablet] 500 mg PO BID 6 Days #12 tab 05/10/19 Docusate Sodium [Colace 100 mg Capsule] 100 mg PO BID 30 Days #60 capsule 05/10/19 Ferrous Sulfate 325 mg PO BID 30 Days #60 tablet. 05/10/19 Oxycodone HCl/Acetaminophen [Percocet 5-325 mg Tablet] 2 tab PO Q4HP PRN 28 Days #7 tablet 05/10/19 Gestational Age: 17.2 Reason(s) for Admission: Medical Complications, Obstetric Complications, Demise Admission Note: Spoke with admitting provider, DEVORA SPICER that evaluated the patient in the office on 05/06/2019. Spoke with Dr. Kathy Crawley with [facility] as well. Plan from 05/06/2019 at follows: DEVORA and Dr. Dietz reviewed with patient and Dr. Crawley regarding +FHR on 05/06/2019 and due to anhydramnios with Previable PROM and remote from viability induction was recommended and discussed with the patient by the providers on 05/06 and she desired to proceed with removal of cerclage and proceed with induction. Remove cerclage due to Anhydramnios and previable PROM - - Dr. Dietz attempted to remove cerclage on 05/06 but unable to completely remove cerclage therefore patient was NPO and Dr. Hong removed cerclage in am on 05/07. per Dr. Crawley - needs amnion and chorion karyotype - will obtain from the placenta after delivery. She has been receiving cytotec 400mcg q 4-6 hours per vagina since cerclage removal. Reviewed with patient that plan for cytotec 800mcg per vagina q 6 hours and if no deliver by am then will give a break and watch for infection. No e/o infection at this time. Per Dr. Crawley recommend Z pack post delivery. Procedures: Cerciage, Management of Obstetric Complications Procedure(s) Note: Induction began after removal of cerclage by Dr. Hong on 05/07 with cytotec 400mcg per vagina. then on 05/08 cytotec 800mcg per rectum given and labor start ed. Intrapartum Procedure(s): Spontaneous Vaginal Delivery, Curettage Intrapartum Procedure Note: Pt delivered on 05/08 non viable demise at 1818 and had retained placenta and began significantly bleeding within 30 minutes of delivery. Patient taken urgently to OR for removal of placenta and D&C. Transfusion one unit PRBCs started in PACU. Placenta maternal and side cultured in OR and biopsies of Amnion/Chorion for karyotype taken by myself and sent from OR. Placenta also sent for pathology. Fetus sent for gross exam - parents are considering burial/cremation plans. Dr. Hong discharged patient in afternoon of 05/08 then when patient was being discharged she began to have dizziness and symptomatic from anemia. Dr. Hong cancelled discharge and ordered transfusion of 1 unit of blood. 05/10 Patient now asymptomatic and doing well from anemia standpoint She is tearful and understandably upset. order planner has seen patient. She denies SI/HI and desires to go home She declines medications for anxiety depression. Complication(s): Transfusion, Curettage, Hemorrhage-Uterine Atony, Hemorrhage-Retained Placenta Complication(s) Note: Patient taken urgently to OR for removal of placenta and D&C. Transfusion one unit PRBCs started in PACU. Placenta maternal and side cultured in OR and biopsies of Amnion/Chorion for karyotype taken by myself and sent from OR. Placenta also sent for pathology. Fetus sent for gross exam - parents are considering burial/cremation plans. Dr. Hong discharged patient in afternoon of 05/08 then when patient was being discharged she began to have dizziness and symptomatic from anemia. Dr. Hong cancelled discharge and ordered transfusion of 1 unit of blood. 05/10 Patient now asymptomatic and doing well from anemia standpoint She is tearful and understandably upset. order planner has seen patient. She denies SI/HI and desires to go home She declines medications for anxiety depression. - Diagnosis Test Laboratory: Temp Pulse Resp BP Pulse Ox 98.0 F 95 16 115/59 L 100 05/10/19 08:04 05/10/19 08:04 05/10/19 08:04 05/10/19 08:04 05/10/19 08:04 05/06/19 05/06/19 05/08/19 19:05 20:16 19:00 RBC 3.65 L 2.99 L Hgb 10.4 L 8.7 L Hct 31.4 L 25.7 L Urine Opiates Screen NEGATIVE 05/08/19 05/09/19 05/09/19 22:20 07:22 14:15 RBC 3.37 L 3.04 L 2.79 L Hgb 9.7 L 9.0 L 8.1 L Hct 29.2 L 26.1 L 24.0 L Urine Opiates Screen - Discharge information/Instructions Discharge Activity: Balance Activity w/Rest, No Lifting/Push/Pulling, Pelvic Rest, Slowly Increase Activity, No tub bath Discharge Diet: As Tolerated, Regular Disposition: HOME, SELF-CARE Follow up with: [facility] in: 1, Weeks
[2019-05-10 09:32] VITALS: BP 94/55
[2019-05-10 10:17] LABS: ABSOLUTE EOSINOPHILS # (AUTO) 0.1 10^3/uL (0.0-0.6); ABSOLUTE LYMPHOCYTES (AUTO) 1.3 10^3/uL (0.5-4.7); ABSOLUTE MONOCYTES (AUTO) 0.5 10^3/uL (0.1-1.4); ABSOLUTE NEUT (AUTO) 6.3 10^3/uL (1.7-8.2); BASOPHILS % (AUTO) 0.4 % (0-2); EOSINOPHILS % (AUTO) 1.2 % (0-6); HEMATOCRIT 28.9 % (36.0-47.0); HEMOGLOBIN 9.7 g/dL (12.0-15.5); MEAN CORPUSCULAR HEMOGLOBIN 29.2 pg (27.0-33.4); MEAN CORPUSCULAR HGB CONC 33.6 g/dL (32.0-36.0); MEAN CORPUSCULAR VOLUME 87 fl (80-97); MONOCYTES % (AUTO) 6.5 % (3-13); PLATELET COUNT 196 10^3/uL (150-450); RED BLOOD COUNT 3.32 10^6/uL (3.72-5.28); RED CELL DISTRIBUTION WIDTH 13.3 % (11.5-14.0); SEGMENTED NEUTROPHILS % (AUTO) 75.9 % (42-78); TOTAL CELLS COUNTED % (AUTO) 100 %; WHITE BLOOD COUNT 8.3 10^3/uL (4.0-10.5)
--- NOTE | 2019-05-10 11:00 | PDOC PROGRESS REPORT ---
<INGA COHEN - Last Filed: 05/10/19 10:57> Subjective-OB Progress Note for:: 05/10/19 Subjective: reports bleeding slowing, pain controlled with current meds, denies needs Physical Exam (OB) Vital Signs: Temp Pulse Resp BP Pulse Ox 98.0 F 91 18 94/55 L 100 05/10/19 08:04 05/10/19 09:24 05/10/19 09:24 05/10/19 09:24 05/10/19 09:24 Intake & Output 05/09/19 05/10/19 05/11/19 06:59 06:59 06:59 Intake Total 3210 500 Output Total 1240 700 Balance 1970 -200 Weight 96.071 kg - Abdomen Hernia Present: No Fundal Description: Firm, Midline Fundal Height: u/u - u/2 - Abdominal Distension: No distension Tenderness: Nontender - Extremities Lower extremities: Blaine's sign - neg Calf: Normal, Nontender Objective-Diagnostic Laboratory: 05/10/19 10:02 05/06/19 05/09/19 05/10/19 20:16 14:15 10:02 WBC 10.6 H 8.3 RBC 2.79 L 3.32 L Hgb 8.1 L 9.7 L Hct 24.0 L 28.9 L MCV 86 87 MCH 29.0 29.2 MCHC 33.7 33.6 RDW 12.8 13.3 Plt Count 207 196 Seg Neutrophils % 71.5 75.9 Lymphocytes % 20.3 16.0 Monocytes % 6.7 6.5 Eosinophils % 1.0 1.2 Basophils % 0.5 0.4 Absolute Neutrophils 7.6 6.3 Absolute Lymphocytes 2.1 1.3 Absolute Monocytes 0.7 0.5 Absolute Eosinophils 0.1 0.1 Absolute Basophils 0.0 0.0 Blood Type B POSITIVE Antibody Screen NEGATIVE Assessment and Plan(PN) - Assessment and Plan (1) Rupture of membranes with delay of delivery Is this a current diagnosis for this admission?: Yes (2) Thrombocytopenia Is this a current diagnosis for this admission?: Yes (3) Acute blood loss anemia Is this a current diagnosis for this admission?: Yes (4) Normal vaginal delivery Is this a current diagnosis for this admission?: Yes - Time Spent with Patient Time with patient: Less than 15 minutes Medications reviewed and adjusted accordingly: Yes - Disposition Anticipated Discharge: Home Within: within 24 hours - per dr desai, check PLT at PP visit, may need to have hematology consult <TRAM DESAI - Last Filed: 05/10/19 12:33> Subjective-OB Subjective: CNM Inga Cohen wrote this note on the incorrect patient. Please disregard information on assessment and plan contained within this note as it does not pertain to this patient. Thank you. Physical Exam (OB) Vital Signs: Temp Pulse Resp BP Pulse Ox 98.0 F 91 18 94/55 L 100 05/10/19 08:04 05/10/19 09:24 05/10/19 09:24 05/10/19 09:24 05/10/19 09:24 Intake & Output 05/09/19 05/10/19 05/11/19 06:59 06:59 06:59 Intake Total 3210 500 Output Total 1240 700 Balance 1970 -200 Weight 96.071 kg Objective-Diagnostic Laboratory: 05/10/19 10:02 05/06/19 05/09/19 05/10/19 20:16 14:15 10:02 WBC 10.6 H 8.3 RBC 2.79 L 3.32 L Hgb 8.1 L 9.7 L Hct 24.0 L 28.9 L MCV 86 87 MCH 29.0 29.2 MCHC 33.7 33.6 RDW 12.8 13.3 Plt Count 207 196 Seg Neutrophils % 71.5 75.9 Lymphocytes % 20.3 16.0 Monocytes % 6.7 6.5 Eosinophils % 1.0 1.2 Basophils % 0.5 0.4 Absolute Neutrophils 7.6 6.3 Absolute Lymphocytes 2.1 1.3 Absolute Monocytes 0.7 0.5 Absolute Eosinophils 0.1 0.1 Absolute Basophils 0.0 0.0 Blood Type B POSITIVE Antibody Screen NEGATIVE Assessment and Plan(PN) - Assessment and Plan (1) Antepartum anhydramnios Is this a current diagnosis for this admission?: Yes (2) Rupture of membranes with delay of delivery Is this a current diagnosis for this admission?: Yes (3) demise, less than 22 weeks, delivered, current hospitalization Is this a current diagnosis for this admission?: Yes (4) hemorrhage, third stage, delivered Is this a current diagnosis for this admission?: Yes (5) Acute blood loss anemia Is this a current diagnosis for this admission?: Yes
== END 2019-05-10 13:47 | disposition home or self-care (01) | DRG 768 ==
LOC: LC 18:52 → LR 19:50 → 2N 05-07
PROVIDERS: ADMIT Obstetrics & Gynecology; ATTEND Obstetrics & Gynecology
PROC: 0UCC7ZZ Extirpation of Matter from Cervix, Via Natural or Artificial Opening (ICD-10-PCS; 2019-05-07)
PROC: 3E0P7VZ Introduction of Hormone into Female Reproductive, Via Natural or Artificial Opening (ICD-10-PCS; 2019-05-07)
PROC: 10D17Z9 Manual Extraction of Products of Conception, Retained, Via Natural or Artificial Opening (ICD-10-PCS; 2019-05-08)
PROC: 30233N1 Transfusion of Nonautologous Red Blood Cells into Peripheral Vein, Percutaneous Approach (ICD-10-PCS; 2019-05-08)
PROC: 10E0XZZ Delivery of Products of Conception, External Approach (ICD-10-PCS; principal; 2019-05-08 19:45)
PROC: 30233N1 Transfusion of Nonautologous Red Blood Cells into Peripheral Vein, Percutaneous Approach (ICD-10-PCS; 2019-05-09)
DX: O42.912 Preterm premature rupture of membranes, unspecified as to length of time between rupture and onset of labor, second trimester (principal); Z37.1 Single stillbirth; O36.4XX0 Maternal care for intrauterine death, not applicable or unspecified; O72.2 Delayed and secondary postpartum hemorrhage; O40.2XX0 Polyhydramnios, second trimester, not applicable or unspecified; O99.012 Anemia complicating pregnancy, second trimester; Z3A.17 17 weeks gestation of pregnancy
CPT/HCPCS: 36415; 36430; 80307; 81001; 85025; 85610; 85730; 86592; 86850; 86900; 86901; 86920; 87070; 87075; 87077; 87186; 87205; 87491; 87591; 88233; 88262; 88305; 940; 948; J0330; J0690; J1170; J2210; J2250; J2270; J2300; J2405; J2704; J3010; J3490; J7060; J7120; P9016

== ENCOUNTER 2020-10-17 16:21 | Outpatient (CLI) | payer OTHER | END 2020-10-17 17:09 | disposition home or self-care (01) | LOC: LC 16:21 | PROVIDERS: ATTEND Obstetrics & Gynecology | DX: Z34.83 Encounter for supervision of other normal pregnancy, third trimester (principal) | CPT/HCPCS: 59025 ==

== ENCOUNTER 2020-11-07 15:26 | Outpatient (CLI) | payer OTHER ==
--- NOTE | 2020-11-07 16:23 | Non Stress Test Report ---
Non Stress Test Datetime Report Generated by CPN: 11/07/2020 16:23 DEMOGRAPHIC EGA NST: 37.3 INDICATION Indication for Study (NST) Other: Repeat NST from office Indication for Study (NST) Other: Sent from office, non reactive VITAL SIGNS Temperature - NST: 97.1 Temperature - NST: 98.1 Pulse - NST: 97 RESP - NST: 18 NBPSYS NST: 90 NBPDIA NST: 46 URINE RESULTS Urine Glucose - NST: Positive MONITORING Monitor Explained: Monitor Explained; Test Explained; Patient Verbalized Understanding Monitor Explained: Monitor Explained; Test Explained; Patient Verbalized Understanding Time on Monitor: 11/07/2020 15:41 Time on Monitor: 10/17/2020 16:31 Time off Monitor: 11/07/2020 16:14 Time off Monitor: 10/17/2020 17:02 NST Duration: 33 NST Duration: 31 NST INTERVENTIONS NST Interventions: PO Hydration NST Interventions: PO Hydration Physician Notified NST: A. Cohen CNM BABY A: [id number] BABY A Movement : Present Movement : Present Contraction Frequency : None Contraction Frequency : none, irritibility FHR Baseline : 130 FHR Baseline : 135 Accelerations : 15X15 Accelerations : 15X15 Decelerations : None Decelerations : None Variability : Moderate 6-25bpm Variability : Moderate 6-25bpm NST Review: Meets Criteria for Reactive NST NST Review: Meets Criteria for Reactive NST NST Review and Verified By : Dana Alfaro [facility] NST Results: Reactive NST Results: Reactive NST REPORT Report Trigger: Send Report
== END 2020-11-07 16:18 | disposition home or self-care (01) ==
LOC: LC 15:26
PROVIDERS: ATTEND Obstetrics & Gynecology Gynecology
DX: Z34.83 Encounter for supervision of other normal pregnancy, third trimester (principal); Z3A.37 37 weeks gestation of pregnancy; Z88.0 Allergy status to penicillin
CPT/HCPCS: 59025

== ENCOUNTER 2020-11-21 15:48 | Outpatient (CLI) | payer OTHER | END 2020-11-21 17:36 | disposition home or self-care (01) | LOC: LC 15:48 | PROVIDERS: ATTEND Obstetrics & Gynecology | DX: Z34.83 Encounter for supervision of other normal pregnancy, third trimester (principal); Z3A.39 39 weeks gestation of pregnancy; Z88.0 Allergy status to penicillin ==

== ENCOUNTER 2020-11-23 13:24 | Outpatient (CLI) | payer OTHER ==
[2020-11-23 14:08] LABS: BILIRUBIN,URINE NEGATIVE (NEGATIVE); GLUCOSE, URINE NEGATIVE (NEGATIVE); KETONES,URINE NEGATIVE (NEGATIVE); LEUKOCYTE ESTERASE,URINE SMALL (NEGATIVE); NITRITE,URINE NEGATIVE (NEGATIVE); PROTEIN,URINE NEGATIVE (NEGATIVE)
[2020-11-23 14:10] LABS: APPEARANCE,URINE CLEAR; COLOR,URINE LIGHT YELLOW; URINE SPECIFIC GRAVITY 1.008
[2020-11-23 14:25] LABS: URINE AMPHETAMINES SCREEN NEGATIVE; URINE BARBITURATES SCREEN NEGATIVE; URINE BENZODIAZEPINES SCREEN NEGATIVE; URINE COCAINE SCREEN NEGATIVE; URINE MARIJUANA (THC) SCREEN NEGATIVE; URINE METHADONE SCREEN NEGATIVE; URINE PHENCYCLIDINE SCREEN NEGATIVE
[2020-11-23] MEDS ORDERED: RINGERS SOLUTION,LACTATED 1,000 ML IV PRN (14:55)
--- NOTE | 2020-11-23 19:25 | Non Stress Test Report ---
Non Stress Test Datetime Report Generated by CPN: 11/23/2020 19:25 DEMOGRAPHIC Test Number: 4 EGA NST: 39.5 EGA NST: 39.3 INDICATION Indication for Study (NST) Other: labor check Indication for Study (NST) Other: Repeat NST VITAL SIGNS Temperature - NST: 97.7 Pulse - NST: 96 RESP - NST: 18 NBPSYS NST: 108 NBPDIA NST: 58 URINE RESULTS Urine Protein, NST: Negative MONITORING Monitor Explained: Monitor Explained; Test Explained; Patient Verbalized Understanding Monitor Explained: Monitor Explained; Patient Verbalized Understanding Time on Monitor: 11/23/2020 17:30 Time on Monitor: 11/21/2020 16:12 Time off Monitor: 11/23/2020 18:10 Time off Monitor: 11/21/2020 16:50 NST Duration: 40 NST Duration: 38 NST INTERVENTIONS NST Interventions: PO Hydration; IV Fluids; Reposition Patient NST Interventions: PO Hydration; Reposition Patient Physician Notified NST: Dr Hong Physician Notified NST: Dr. Hong BABY A: [id number] BABY A Movement : Present Movement : Present Movement : Present Contraction Frequency : occasional Contraction Frequency : Occasional FHR Baseline : 135 FHR Baseline : 135 Accelerations : 15X15 Accelerations : 15X15 Decelerations : None Decelerations : None Variability : Moderate 6-25bpm Variability : Absent - Undetectable NST Review: Meets Criteria for Reactive NST NST Review: Meets Criteria for Reactive NST NST Review and Verified By : Avelina FERNANDEZ Results: Reactive NST Results: Reactive NST Results: Reactive NST COMMENTS NST Comments: Pt had BPP 8/8 NST REPORT Report Trigger: Send Report
--- NOTE | 2020-11-23 22:41 | RADIOLOGY REPORT (SQ) ---
EXAM DESCRIPTION: US LIMITED COMPLETED DATE/TME: 11/23/2020 17:16 CLINICAL HISTORY: 30 years Female, non reactive NST needs BPP 39w5d Comparison: 04/20/19 TECHNIQUE/LIMITATION: Targeted OB sonogram for requested parameters only. FINDINGS: Single IUP Cardiac activity: 137-bpm. KANDY: 8.1-cm breathing: Two, normal posture and tone: Two, normal movement: Two, normal Amniotic fluid volume: Two, normal, KANDY: 8.1-cm Ultrasound biophysical profile total score: Eight of eight IMPRESSION: Targeted OB sonogram for requested parameters
== END 2020-11-23 18:13 | disposition home or self-care (01) ==
LOC: LC 13:24
PROVIDERS: ATTEND Obstetrics & Gynecology Gynecology
DX: O36.8930 Maternal care for other specified fetal problems, third trimester, not applicable or unspecified (principal); Z3A.39 39 weeks gestation of pregnancy; Z88.0 Allergy status to penicillin
CPT/HCPCS: 59025; 76815; 80307; 81005; 84112; 94760

== ENCOUNTER 2020-11-24 03:38 | Inpatient (IN) | payer OTHER ==
[2020-11-24 04:19] LABS: APPEARANCE,URINE CLOUDY; BILIRUBIN,URINE NEGATIVE (NEGATIVE); COLOR,URINE YELLOW; GLUCOSE, URINE NEGATIVE (NEGATIVE); KETONES,URINE NEGATIVE (NEGATIVE); LEUKOCYTE ESTERASE,URINE LARGE (NEGATIVE); NITRITE,URINE NEGATIVE (NEGATIVE); PROTEIN,URINE 30 mg/dL (NEGATIVE); URINE SPECIFIC GRAVITY 1.006; UROBILINOGEN,URINE NEGATIVE mg/dL (<2.0)
[2020-11-24 04:55] LABS: URINE AMPHETAMINES SCREEN NEGATIVE; URINE BARBITURATES SCREEN NEGATIVE; URINE BENZODIAZEPINES SCREEN NEGATIVE; URINE COCAINE SCREEN NEGATIVE; URINE MARIJUANA (THC) SCREEN NEGATIVE; URINE METHADONE SCREEN NEGATIVE; URINE PHENCYCLIDINE SCREEN NEGATIVE
[2020-11-24] MEDS ORDERED: RINGERS SOLUTION,LACTATED 1,000 ML IV ONE (05:34)
[2020-11-24] MEDS ORDERED: RINGERS SOLUTION,LACTATED 500 ML IV ONE (05:34)
[2020-11-24] MEDS ORDERED: VANCOMYCIN HCL INJ 1000 MG VIAL ONE (05:58)
[2020-11-24] MEDS ORDERED: VANCOMYCIN HCL INJ 1000 MG VIAL IV ONE (05:59)
[2020-11-24] MEDS ORDERED: VANCOMYCIN HCL 1,000 MG in DEXTROSE 5%-WATER 250 ML IV SCH (06:00)
[2020-11-24 06:10] LABS: ABSOLUTE EOSINOPHILS # (AUTO) 0.1 10^3/uL (0.0-0.6); ABSOLUTE LYMPHOCYTES (AUTO) 2.2 10^3/uL (0.5-4.7); ABSOLUTE NEUT (AUTO) 8.6 10^3/uL (1.7-8.2); BASOPHILS % (AUTO) 0.4 % (0-2); EOSINOPHILS % (AUTO) 0.7 % (0-6); HEMATOCRIT 32.4 % (36.0-47.0); LYMPHOCYTES % (AUTO) 18.5 % (13-45); MEAN CORPUSCULAR HEMOGLOBIN 28.5 pg (27.0-33.4); MEAN CORPUSCULAR VOLUME 84 fl (80-97); MONOCYTES % (AUTO) 8.7 % (3-13); PLATELET COUNT 289 10^3/uL (150-450); RED BLOOD COUNT 3.87 10^6/uL (3.72-5.28); RED CELL DISTRIBUTION WIDTH 13.5 % (11.5-14.0); SEGMENTED NEUTROPHILS % (AUTO) 71.7 % (42-78); TOTAL CELLS COUNTED % (AUTO) 100 %; WHITE BLOOD COUNT 11.9 10^3/uL (4.0-10.5)
[2020-11-24] MEDS ORDERED: EPHEDRINE SULFATE INJ 50 MG/1 ML AMPULE ONE (07:12)
[2020-11-24] MEDS ORDERED: FENTANYL/BUPIVACAINE/NS/PF 300 MCG/150 ML RTUINJ EPI ONE (07:13)
[2020-11-24] MEDS ORDERED: ROPIVACAINE HCL 0.2% INJ/PF (2 MG/ML) 20 ML SDV ONE (07:13)
[2020-11-24] MEDS ORDERED: PHENYLEPHRINE HCL INJ/PF 10 MG/1 ML SDV ONE (10:20)
[2020-11-24] MEDS ORDERED: KETOROLAC TROMETHAMINE 60 MG/2 ML SDV ONE (10:20)
[2020-11-24] MEDS ORDERED: ONDANSETRON HCL INJ/PF 4 MG/2 ML SDV ONE (10:20)
--- NOTE | 2020-11-24 10:47 | Admission Physical ---
Datetime Report Generated by CPN: 11/24/2020 10:47 CURRENT ADMISSION Chief Complaint: Suspected Ruptured Membranes Indication for Induction: Not Applicable Admit Impression : Term, Intrauterine Admit Plan: Admit to Unit Admit Plan- Other: G1 EAB G2 Twins 21.6 Chorio, clerclage G3 full term , Cerclage G4 17 wk SAB Cerclage G5: current, had clerclage removed at 36.6 at [facility] ALLERGIES Medication Allergies: Yes Medication Allergies: penicillin G (11/24/2020) Latex: No Latex Allergies OBSTETRICAL HISTORY EDC: 11/25/2020 00:00 : 5 Para: 1 Term: 1 : 1 SAB: 1 IAB: 1 Livin Gestational Diabetes: No Rh Sensitization: No Incompetent Cervix: Yes SMILEY: No Infertility: No ART Treatment: Yes Uterine Anomaly: No IUGR: No Hx Previous C/S: No Macrosomia: No Hx Loss/Stillborn: Yes PIH: No Hx : No Placenta Previa/Abruption: No Depression/PP Depression: No PTL/PROM: No Post Hemorrhage: No Obstetrical History Comments: G1 2003 EAB G2 2008 21.6 SAB twins, chorio, incompetent cervix G3 6lbs cerclage G4 2019 SAB cerclage G5- current, cerclage SEE RECORDS Alcohol: No Marijuana : No Cocaine: No Other Illicit Drugs: No Cigarettes: Current Everyday Smoker. [id number] Advised to Stop: Yes MEDICAL HISTORY Diabetes: No Blood Transfusion: No Pulmonary Disease (Asthma, TB): No Breast Disease: No Hypertension: No Parcel Post Delivery Surgery: No Heart Disease: No Hosp/Surgery: Yes Autoimmune Disorder: No Anesthetic Complications: No Kidney Disease: No Abnormal Pap Smear: No Neuro/Epilepsy: No Psychiatric Disorders: No Other Medical Diseases: No Hepatitis/Liver Disease: No Significant Family History: No Varicosities/Phlebitis: No Trauma/Violence : No Thyroid Dysfunction: No Medical History Comments: failled 1 hour passed 3 hour glucose INFECTIOUS HISTORY Gonorrhea: No Genital Herpes: No Chlamydia: No Tuberculosis: No Syphilis: No Hepatitis: No HIV/AIDS Exposure: No Rash or Viral Illness: No HPV: No PHYSICAL EXAM General: Normal HEENT: Deferred Neurologic: Normal Thyroid: Deferred Heart: Normal Lungs: Normal Breast: Deferred Back: Deferred Abdomen: Normal Genitourinary Exam: Normal Extremities: Normal DTRs: Deferred Pelvic Type: Adequate Vital Signs: Reviewed VAGINAL EXAM Dilatation: 2 Effacement: 60 Station: -2 MEMBRANES Membranes: Ruptured Amniotic Fluid Color: Meconium, Heavy FETUS A EGA: 39.6 Monitoring: External US FHR- Baseline: 130 Variability: Moderate 6-25bpm Accelerations: 15X15 Decelerations: Late FHR Category: Category II FHR Comments: IUPC placed d/t suspected late decels, Dr. Dietz notified Presentation: Vertex Admit Comment: Pt arrived this am SROM at 3 am green admitted to unit late decels GBS + resistant to Clinda, had Vancomycin x1 PLANS FOR LABOR AND DELIVERY Labor and Delivery: None Pain Management: Epidural Feeding Preference: Breast Benefit of Breast Feed Discussed: Yes Circumcision: N/A INFORMED CONSENT Assignment: Tommy Dietz MD Signature: with User ID: [email or web address] : with User ID: [email or web address]
[2020-11-24] MEDS ORDERED: CEFAZOLIN 2 GM/D5W RTU 2 GM/50 ML RTUPB IV ONE (10:55)
[2020-11-24] MEDS ORDERED: CITRIC ACID/SODIUM CITRATE ORAL SOLN 15 ML UDCUP ONE (10:55)
--- NOTE | 2020-11-24 10:58 | L&D Progress Notes ---
PROGRESS NOTES Datetime Report Generated by CPN: 11/24/2020 10:58 PROGRESS NOTE Impression: Non-reassuring Heart Rate Informed Consent Obtained: Section Delivery Comment: I was called by the administrative resources associate requesting a c section. The baby has repetative late decells and meconium noted. On exam she is 2 cm. The cerclage is reported to be removed but I can feel a suture in the cervix. I cannot see a knot or suture however and I think perhaps the knot has been cut off. We will proceed with a c section. The patient agrees to proceed. VAGINAL EXAM Dilatation: 2 Effacement: 60 Station: -2 LAST VAGINAL EXAM-NURSING Nursing Exam Dilitation: 2.0 Nursing Exam Effacement: 75 Nursing Exam Station: -2 Nursing Exam Contractions: by Vivi Perez, CNM MEMBRANES Membranes: Ruptured Amniotic Fluid Color: Meconium, Heavy FETUS A : 39.6 Presentation: Vertex SIGNATURE SIGNATURE: [id number];[id number];[id number] Signature: with User ID: [email or web address]
[2020-11-24] MEDS ORDERED: LIDOCAINE 2% INJ-PF (20 MG/ML) 10 ML AMPUL ONE (11:00)
[2020-11-24] MEDS ORDERED: ACETAMINOPHEN 1,000 MG/100 ML RTUPB IV ONE (11:00)
[2020-11-24] MEDS ORDERED: OXYTOCIN/0.9 % SODIUM CHLORIDE 30 UNIT/500 ML RTUINJ ONE (11:00)
[2020-11-24] MEDS ORDERED: HYDROMORPHONE HCL INJ/PF 2 MG/ML AMPULE IV PRN (11:07)
[2020-11-24] MEDS ORDERED: ACETAMINOPHEN 1,000 MG/100 ML RTUPB IV PRN (11:07)
[2020-11-24] MEDS ORDERED: ACETAMINOPHEN 325 MG TABLET PO PRN (11:07)
[2020-11-24] MEDS ORDERED: DIPH/PERTUSS(ACELL)/TETANUS VAC/PF 0.5 ML SYR (>=10YO) IM PRN (11:07)
[2020-11-24] MEDS ORDERED: OXYCODONE-ACETAMINOPHEN 5-325 MG TABLET PO PRN (11:07)
[2020-11-24] MEDS ORDERED: RINGERS SOLUTION,LACTATED 1,000 ML IV PRN (11:07)
[2020-11-24] MEDS ORDERED: PROMETHAZINE HCL INJ 25 MG/1 ML VIAL IV PRN (11:07)
[2020-11-24] MEDS ORDERED: MEASLES,MUMPS&RUBELLA VACC/PF 0.5 ML VIAL SUBCUT PRN (11:07)
[2020-11-24] MEDS ORDERED: OXYTOCIN/0.9 % SODIUM CHLORIDE 30 UNIT/500 ML RTUINJ IV PRN (11:07)
[2020-11-24] MEDS ORDERED: SIMETHICONE 80 MG TAB.CHEW PO PRN (11:07)
[2020-11-24] MEDS ORDERED: OXYTOCIN 10 UNIT/ML VIAL ONE (11:23)
--- NOTE | 2020-11-24 12:22 | Operative Report ---
Operative Report DATE OF SURGERY: 11/24/20 PREOPERATIVE DIAGNOSIS: Repetitive late decelerations with meconium and poor pr ogress in labor. POSTOPERATIVE DIAGNOSIS: Same OPERATION: Primary via low transverse uterine incision SURGEON: ZACK VERNON ANESTHESIA: Spinal TISSUE REMOVED OR ALTERED: Placenta COMPLICATIONS: None ESTIMATED BLOOD LOSS: 250 cc INTRAOPERATIVE FINDINGS: Normal uterus tubes and ovaries PROCEDURE: The patient is progressing poorly in labor and the baby is having some repetitive late decelerations and thick meconium. On exam I either feel retained cerclage stitch or a scarring from her cerclage. I cannot see a suture on speculum exam. Patient was taken to the OR and placed in supine position after her spinal anesthesia. She is prepared and draped in sterile fashion. Stacy was placed for drainage of the bladder. Low transverse incision was made and carried down the level of the fascia. The fascial incision was made with knife and extended bilaterally with curved Pedro scissors. The fascia was off the rectus muscles using sharp and blunt dissection. The rectus muscles are in the midline. The peritoneum was entered without incident. Bladder blade was placed in uterine segment was identified. A low transverse incision was made creating a bladder flap. Bladder blade was placed low transverse uterine incision was made with the knife and extended with fingertips. The baby was delivered with some fundal pressure. Mouth and nose were suctioned free. The cord is doubly clamped and cut. Baby is passed off to the public area attendant in attendance. The baby's position was occiput anterior the placenta was manually extracted with trailing membranes. The uterus was externalized wrapped in a moist lap sponge. Uterine contents wiped free. Uterus was closed with a running locking layer of 0 chromic suture using the second layer to imbricate the first completing a double layer closure of the uterus. The serosa was closed with a running 2-0 chromic stitch. The pelvis was irrigated and suctioned free of fluid the uterus was replaced in the abdomen. The abdominal wall peritoneum was closed with running 2-0 chromic stitch. Fascia was closed with a running 0 Vicryl in 2 segments. Peyton's layer was brought together with 0 plain gut stitch and the skin was closed with running subcuticular 4-0 undyed Vicryl stitch. The wound was dressed mother and baby did well. She is noted to have a narrow pelvis as well. Perhaps a repeat with next would be the most prudent course of action. The baby also had a tremendous amount of caput molding at the time of the .
[2020-11-24] MEDS ORDERED: PROMETHAZINE HCL INJ 25 MG/1 ML VIAL ONE (13:40)
[2020-11-24] MEDS ORDERED: HYDROMORPHONE HCL INJ/PF 2 MG/ML AMPULE ONE (13:40)
[2020-11-24] MEDS: KETOROLAC TROMETHAMINE INJ/PF 30 MG/1 ML SDV IV SCH ×2 (15:08→21:18)
[2020-11-24] MEDS: CEFAZOLIN 2 GM/D5W RTU 2 GM/50 ML RTUPB IV SCH ×2 (15:08→17:16)
[2020-11-24] MEDS: OXYCODONE-ACETAMINOPHEN 5-325 MG TABLET PO PRN (15:34)
[2020-11-24] MEDS: DOCUSATE SODIUM 100 MG CAPSULE PO SCH (17:15)
--- NOTE | 2020-11-24 17:49 | Birth Certificate Data ---
Cert Data Datetime Report Generated by CPN: 11/24/2020 17:48 CERTIFICATE DATA Delivery Provider: Tommy Dietz MD (11/24/2020 12:00:Danielle Ohara RN) 48b. Now Livin (11/07/2020 15:34:Deepthi Arenas RN) RISK FACTORS IN THIS 49a. Diabetes: No (11/07/2020 15:34:Jennifer Bravo RN) 49b. Hypertension: No (11/07/2020 15:34:Jennifer Bravo RN) 49c. Previous Births: 1 (11/07/2020 15:34:Betty Landaverde RN) 49d. Stillborns: Yes (11/07/2020 15:34:Jennifer Bravo RN) 49d. IUGR: No (11/07/2020 15:34:Jennifer Bravo RN) 49e. Infertility Treatment: Yes (11/07/2020 15:34:Jennifer Bravo RN) Mother's Height 50b. Height Inches: 66 (11/24/2020 14:12:QS system process) Mother's Weight 51b. Weight at Delivery (lbs): 216 (11/24/2020 14:12:QS system process) Infections Present/Treated 53a. Gonorrhea: No (11/07/2020 15:34:Jennifer Bravo RN) Results this Hospital Visit : Negative (11/07/2020 15:34:Jennifer Bravo RN) 53b. Syphilis: No (11/07/2020 15:34:Jennifer Bravo RN) Results this Hospital Visit: NONREACTIVE (11/24/2020 05:51:QS system process) 53c. Chlamydia: No (11/07/2020 15:34:Jennifer Bravo RN) Results this Hospital Visit: Negative (11/07/2020 15:34:Jennifer Bravo RN) 53d. Hepatitis B: No (11/07/2020 15:34:Jennifer Bravo RN) Results this Hospital Visit: Negative (11/07/2020 15:34:Jennifer Bravo RN) 53e. Hepatitis C: Negative (11/07/2020 15:34:Jennifer Bravo RN) 53h. Mother Tested for HBsAG: Yes (11/07/2020 15:34:Jennifer Bravo RN) 53i. Date Tested: 04/19/2020 00:00 (11/07/2020 15:34:Jennifer Bravo RN) 53j. Test Result: Negative (11/07/2020 15:34:Jennifer Bravo RN) Cigarette Smoking Cigarette Smoking: Current Everyday Smoker. [id number] (11/07/2020 15:34:Jennifer Bravo RN) 55a. 3 Months Before Preg - Ci (11/07/2020 15:34:Jennifer Bravo RN) 55b. 1st Trimester of Preg- Ci (11/07/2020 15:34:Jennifer Bravo RN) 55c. 2nd Trimester of Preg- Ci (11/07/2020 15:34:Jennifer Bravo RN) 55d. 3rd Trimester of Preg- Ci (11/07/2020 15:34:Jennifer Bravo RN) Onset of Labor 56a. PROM >12 Hrs: 8.63 (11/07/2020 15:34:QS system process) 56b. Precipitous Labor <3 Hrs: 8 (11/07/2020 15:34:QS system process) 56c. Prolonged Labor > 20 Hrs: 8 (11/07/2020 15:34:QS system process) 57a. Induction of Labor: N/A (11/07/2020 15:34:Danielle Ohara RN) 57c. Non-Vertex Presentation A: Vertex (11/07/2020 15:34:Danielle Ohara RN) 57d. Steroids - Lung Mat: None (11/07/2020 15:34:Danielle Ohara RN) 57d. Steroids - Lung Mat: Not Applicable (11/07/2020 15:34:Danielle Ohara RN) 57e. Antibiotics During Labor: 11/24/2020 11:20 (11/07/2020 15:34:Danielle Ohara RN) 57f. Mat Chorio or Temp >100.4: 98.6 (11/07/2020 15:34:Danielle Ohara RN) 57g. Moderate/Heavy Meconium: Moderate Meconium (11/24/2020 05:26:Jennifer Bravo RN) 57h. Intolerance of Labor: Nonreassuring Status (11/07/2020 15:34:Danielle Ohara RN) : Secondary Arrest of Dilatation (11/07/2020 15:34:Danielle Ohara RN) 57i. Epidural/Spinal Anesthesia: Epidural (11/07/2020 15:34:Danielle Ohara RN) Method of Delivery 58a. Forceps - Unsuccessful A: N/A (11/07/2020 15:34:Danielle Ohara RN) 58b. Vacuum - Unsuccessful A: N/A (11/07/2020 15:34:Danielle Ohara RN) 58c. Presentation at 58c. Presentation at - A : Vertex (11/07/2020 15:34:Danielle Ohara RN) 58c. Presentation at - A : N/A (11/07/2020 15:34:Danielle Ohara RN) 58c. Presentation at - A : Cephalic (11/07/2020 15:34:Mario Berger, WATER RESOURCE PROJECT MANAGER) Final Route and Method of Del 58d. Baby A Route/Delivery: (11/07/2020 15:34:Danielle Ohara RN) 58e. Trial of Labor Attempted: No (11/07/2020 15:34:Danielle Ohara RN) 58e. Trial of Labor Attempted A: N/A (11/07/2020 15:34:Danielle Ohara RN) 58e. Trial of Labor Attempted B: N/A (11/07/2020 15:34:Danielle Ohara RN) Maternal Morbidity 59b. 3rd or 4th Degree Lacs: None (11/07/2020 15:34:Danielle Ohara, RN) Birthweight Baby A: 2858 (11/07/2020 15:34:Mario Berger WATER RESOURCE PROJECT MANAGER) 60a. Pounds : 6 (11/07/2020 15:34:QS system process) 60b. Ounces: 5 (11/07/2020 15:34:QS system process) 61. GA at Delivery Baby A: 39.6 (11/07/2020 15:34:Danielle Rasheedabryanna Ohara, RN) : Full Term- 39- 40.6 Weeks (11/07/2020 15:34:QS system process) 62a. 5 Minute Baby A: 8 (11/07/2020 15:34:QS system process)
--- NOTE | 2020-11-24 17:49 | Delivery Summary ---
Del Sum A-C Datetime Report Generated by CPN: 11/24/2020 17:48 DELIVERY PERSONNEL DELIVERY PERSONNEL: [id number] Delivery Doctor:: Tommy Dietz MD SALES TRADER:: Radha Morales CRNA Linesperson:: Danielle Ohara RN Neonatal Nurse Practitioner:: CORNELIA Wooten Nursery Nurse:: Bertha Garcia RN Nursery Nurse:: Elena Chahal RN User Acceptance Tester/HOT SHOT: Isabelle Francisco CST User Acceptance Tester/HOT SHOT: Yadiraisaiah Rodriguez, ELECTRIC MELT OPERATOR MATERNAL INFORMATION Delivery Anesthesia: Epidural Medications After Delivery: Pitocin 30 Units in 500ml NS/D5W; Pitocin Drip 20 Units/1000ml NSS Delivery QBL: 490 Maternal Complications: None LABOR SUMMARY EDC: 11/25/2020 00:00 No. Babies in Womb: 1 Attempted: No Labor Anesthesia: Epidural LABOR INFORMATION Reason for Induction: Not Applicable Reason for Induction- Other: given Vancomycin due to penicillin allergies Onset of Labor: 11/24/2020 03:00 Oxytocin: N/A Group B Beta Strep: positive Antibiotics # of Doses: 2 Antibiotics Time of Last Dose: 11/24/2020 11:20 Name of Antibiotic Given: Anceg 2m Steroids Given: None Reason Steroids Not Administered: Not Applicable MEMBRANES Membranes Rupture Method: Spontaneous Rupture of Membranes: 11/24/2020 03:00 Length of Rupture (hr): 8.63 Amniotic Fluid Color: Moderate Meconium Amniotic Fluid Amount: Small Amniotic Fluid Odor: Normal STAGES OF LABOR Stage 3 hr: 0 Stage 3 min: 1 Total Time in Labor hr: 8 Total Time in Labor min: 39 VAGINAL DELIVERY Episiotomy: None Laceration #1: None Laceration Extension #1: N/A Laceration Repair: Not Applicable Sponge Count Correct: N/A Sharps Count Correct: N/A CSECTION DELIVERY Primary Indication: Nonreassuring Status Secondary Indication: Secondary Arrest of Dilatation CSection Urgency: Scheduled CSection Incidence: Primary Labor: Labor Elective: Elective CSection Incision: Lower Uterine Transverse BABY A INFORMATION Delivery Date/Time: 11/24/2020 11:38 Method of Delivery: Nurse Controlled Delivery: No Born in Route : No : N/A Forceps: N/A Vacuum Extraction: N/A Shoulder Dystocia : No PRESENTATION/POSITION BABY A Presentation: Cephalic Cephalic Presentation: Vertex Breech Presentation: N/A PLACENTA INFORMATION BABY A Placenta Delivery Time : 11/24/2020 11:39 Placenta Method of Delivery: Manual Removal Placenta Status: Retained SCORES BABY A Heart Rate 1 min: >100 bpm Resp Effort 1 min: Good Cry Reflex Irritability 1 min: Cough or Sneeze or Pulls Away Muscle Tone 1 min: Active Motion Color 1 min: Blue/Pale Resuscitation Effort 1 min: Tactile Stimulation SCORE 1 MIN: 8 Heart Rate 5 min: >100 bpm Resp Effort 5 min: Good Cry Reflex Irritability 5 min: Cough or Sneeze or Pulls Away Muscle Tone 5 min: Active Motion Color 5 min: Blue/Pale Resuscitation Effort 5 min: Tactile Stimulation; Oxygen; PPV/NCPAP SCORE 5 MIN: 8 INFORMATION BABY A Gestational Age at Delivery: 39.6 Gestational Status: Full Term- 39- 40.6 Weeks Outcome : Liveborn Condition : Stable Infant Sex: Female WEIGHT/LENGTH BABY A Infant Birthweight (gm): 2858 Infant Weight (lb): 6 Infant Weight (oz): 5 CORD INFORMATION BABY A No. Cord Vessels: 3 Nuchal Cord : N/A Cord Blood Taken: Yes-For Storage (Mom's Blood type +) Suction: Mouth; Nose ASSESSMENT BABY A Skin to Skin: No BABY B INFORMATION : N/A SIGNATURES : I was personally available for consultation and serving as supervising physician for the MLP.
[2020-11-25] MEDS: OXYCODONE-ACETAMINOPHEN 5-325 MG TABLET PO PRN ×3 (00:13→15:53)
[2020-11-25] MEDS: CEFAZOLIN 2 GM/D5W RTU 2 GM/50 ML RTUPB IV SCH (00:34)
[2020-11-25] MEDS: KETOROLAC TROMETHAMINE INJ/PF 30 MG/1 ML SDV IV SCH (06:50)
[2020-11-25 08:49] LABS: HEMATOCRIT 32.3 % (36.0-47.0); HEMOGLOBIN 11.1 g/dL (12.0-15.5); MEAN CORPUSCULAR HEMOGLOBIN 29.2 pg (27.0-33.4); MEAN CORPUSCULAR HGB CONC 34.3 g/dL (32.0-36.0); MEAN CORPUSCULAR VOLUME 85 fl (80-97); PLATELET COUNT 247 10^3/uL (150-450); RED CELL DISTRIBUTION WIDTH 13.8 % (11.5-14.0); WHITE BLOOD COUNT 9.1 10^3/uL (4.0-10.5)
[2020-11-25] MEDS: DOCUSATE SODIUM 100 MG CAPSULE PO SCH ×2 (10:12→17:49)
[2020-11-25] MEDS: PRENATAL VITAMIN W DHA CAPSULE PO SCH (10:12)
--- NOTE | 2020-11-25 10:17 | PDOC PROGRESS REPORT ---
Subjective-OB Progress Note for:: 11/25/20 Subjective: Pt doing well, no complaints. Baby in NICU. She reports reg diet, light bleeding, no flatus yet. Ambulatory. Physical Exam (OB) Vital Signs: Temp Pulse Resp BP Pulse Ox 98.1 F 79 17 100/52 L 99 11/25/20 07:44 11/25/20 07:44 11/25/20 07:44 11/25/20 07:44 11/25/20 07:44 Intake & Output 11/24/20 11/25/20 11/26/20 06:59 06:59 06:59 Output Total 1100 250 Balance -1100 -250 Weight 97.976 kg - PIH/Pre-Eclampsia DTR's: 1 + Clonus: Negative Headache: Absent Epigastric Pain: No Visual Changes: No - Dressing Removed: No Incision: Dressing Closure Type: pressure - Bilateral Tubal Ligation Dressing Removed: No - Maternal Morbidity 59. Maternal Morbidity (serious complications experinced by the mother associated with labor and delivery: None of the above - Lochia Lochia Amount: Scant < 10 ml Lochia Color: Rubra/Red - Abdomen Description: Soft, Round Hernia Present: No Fundal Description: Firm, Midline Fundal Height: u/u - u/2 Objective-Diagnostic Laboratory: 11/25/20 08:15 11/25/20 08:15 WBC 9.1 RBC 3.80 Hgb 11.1 L Hct 32.3 L MCV 85 MCH 29.2 MCHC 34.3 RDW 13.8 Plt Count 247 Assessment and Plan(PN) - Assessment and Plan (1) delivery delivered Is this a current diagnosis for this admission?: Yes (2) Hx of cerclage, currently Is this a current diagnosis for this admission?: Yes (3) Non-reassuring heart rate or rhythm affecting management of fetus Is this a current diagnosis for this admission?: Yes (4) SROM (spontaneous rupture of membranes) Is this a current diagnosis for this admission?: Yes (5) Thick meconium stained amniotic fluid Is this a current diagnosis for this admission?: Yes - Time Spent with Patient Time with patient: Less than 15 minutes Medications reviewed and adjusted accordingly: Yes - Disposition Anticipated Discharge Disposition: Home, Self Care Anticipated Discharge Timeframe: within 24 hours
[2020-11-25] MEDS: IBUPROFEN 800 MG TABLET PO SCH ×3 (15:53→23:25)
[2020-11-26] MEDS: IBUPROFEN 800 MG TABLET PO SCH ×3 (05:10→18:09)
[2020-11-26] MEDS: OXYCODONE-ACETAMINOPHEN 5-325 MG TABLET PO PRN ×2 (07:39→20:23)
--- NOTE | 2020-11-26 10:19 | PDOC PROGRESS REPORT ---
Subjective Date:: 11/26/20 Subjective:: Doing well. Reason For Visit: Physical Exam - Physical Exam Vital Signs: Temp Pulse Resp BP Pulse Ox 97.6 F 87 18 96/45 L 100 11/26/20 07:22 11/26/20 07:22 11/26/20 07:22 11/26/20 07:22 11/26/20 07:22 Intake & Output 11/25/20 11/26/20 11/27/20 06:59 06:59 06:59 Intake Total 2000 Output Total 1100 350 Balance -1100 1650 General appearance: PRESENT: no acute distress, well-developed, well-nourished Eye exam: PRESENT: conjunctiva pink, EOMI, PERRLA. ABSENT: scleral icterus GI/Abdominal exam: PRESENT: normal bowel sounds, soft. ABSENT: distended, guarding, mass, organolmegaly, rebound, tenderness Extremities exam: PRESENT: full ROM. ABSENT: calf tenderness, clubbing, pedal edema Result Laboratory Results: 11/25/20 08:15 Impressions: Doing well. Baby in nursery today. Assessment & Plan - Time Time Spent with patient: 15-24 minutes - Plan Summary Plan Summary: Home tomorrow.
[2020-11-26] MEDS: DOCUSATE SODIUM 100 MG CAPSULE PO SCH ×2 (11:11→18:09)
[2020-11-26] MEDS: PRENATAL VITAMIN W DHA CAPSULE PO SCH (11:11)
[2020-11-27] MEDS: IBUPROFEN 800 MG TABLET PO SCH ×2 (00:56→05:52)
[2020-11-27] MEDS: OXYCODONE-ACETAMINOPHEN 5-325 MG TABLET PO PRN (08:46)
[2020-11-27] MEDS: DOCUSATE SODIUM 100 MG CAPSULE PO SCH (10:08)
[2020-11-27] MEDS: PRENATAL VITAMIN W DHA CAPSULE PO SCH (10:08)
--- NOTE | 2020-11-27 10:13 | PDOC DISCHARGE SUMMARY ---
Impression - Admit/DC Date/PCP Admission Date/Primary Care Provider: 11/24/20 05:30 ANYI VILLARREAL MD Discharge Date: 11/27/20 - Assessment Summary: She underwent a csection for nonreassuring heart rate. Please see the op report. Post operatively she and the baby did well. She is ready to go home today. She requests percocet for pain medication. - Additional Information Resuscitation Status: Full Code Discharge Diet: As Tolerated Discharge Activity: Pelvic Rest, Supervised Activity Referrals: ANYI VILLARREAL MD [Primary Care Provider] - Prescriptions: Oxycodone HCl/Acetaminophen [Percocet 5-325 mg Tablet] 1 tab PO Q4HP PRN #20 tablet PRN Reason: Home Medications: Ferrous Sulfate 325 mg PO BID 30 Days #60 tablet. 05/10/19 Prenat 115/Iron Fum/Folic/Dss [ 19 Tablet] 1 each PO ONCE PRN 11/07/20 Oxycodone HCl/Acetaminophen [Percocet 5-325 mg Tablet] 1 tab PO Q4HP PRN #20 tablet 11/27/20 History of Present Illiness History of Present Illness: AXEL OLMEDO is a 30 year old female Physical Exam - Physical Exam Vital Signs: Temp Pulse Resp BP Pulse Ox 97.9 F 78 16 109/62 99 11/27/20 07:27 11/27/20 07:27 11/27/20 07:27 11/27/20 07:27 11/27/20 07:27 Intake & Output 11/26/20 11/27/20 11/28/20 06:59 06:59 06:59 Intake Total 2000 500 400 Output Total 350 Balance 1650 500 400 Results Laboratory Results: WBC 9.1 10^3/uL (4.0-10.5) 11/25/20 08:15 RBC 3.80 10^6/uL (3.72-5.28) 11/25/20 08:15 Hgb 11.1 g/dL (12.0-15.5) L 11/25/20 08:15 Hct 32.3 % (36.0-47.0) L 11/25/20 08:15 MCV 85 fl (80-97) 11/25/20 08:15 MCH 29.2 pg (27.0-33.4) 11/25/20 08:15 MCHC 34.3 g/dL (32.0-36.0) 11/25/20 08:15 RDW 13.8 % (11.5-14.0) 11/25/20 08:15 Plt Count 247 10^3/uL (150-450) 11/25/20 08:15 Lymph % (Auto) 18.5 % (13-45) 11/24/20 05:51 Clare % (Auto) 8.7 % (3-13) 11/24/20 05:51 Eos % (Auto) 0.7 % (0-6) 11/24/20 05:51 Baso % (Auto) 0.4 % (0-2) 11/24/20 05:51 Absolute Neuts (auto) 8.6 10^3/uL (1.7-8.2) H 11/24/20 05:51 Absolute Lymphs (auto) 2.2 10^3/uL (0.5-4.7) 11/24/20 05:51 Absolute Monos (auto) 1.0 10^3/uL (0.1-1.4) 11/24/20 05:51 Absolute Eos (auto) 0.1 10^3/uL (0.0-0.6) 11/24/20 05:51 Absolute Basos (auto) 0.0 10^3/uL (0.0-0.2) 11/24/20 05:51 Seg Neutrophils % 71.7 % (42-78) 11/24/20 05:51 Urine Color YELLOW 11/24/20 04:00 Urine Appearance CLOUDY 11/24/20 04:00 Urine pH 7.0 (5.0-9.0) 11/24/20 04:00 Ur Specific Franklin 1.006 11/24/20 04:00 Urine Protein 30 mg/dL (NEGATIVE) H 11/24/20 04:00 Urine Glucose (UA) NEGATIVE mg/dL (NEGATIVE) 11/24/20 04:00 Urine Ketones NEGATIVE mg/dL (NEGATIVE) 11/24/20 04:00 Urine Blood MODERATE (NEGATIVE) H 11/24/20 04:00 Urine Nitrite NEGATIVE (NEGATIVE) 11/24/20 04:00 Urine Bilirubin NEGATIVE (NEGATIVE) 11/24/20 04:00 Urine Urobilinogen NEGATIVE mg/dL (<2.0) 11/24/20 04:00 Ur Leukocyte Esterase LARGE (NEGATIVE) H 11/24/20 04:00 Urine Ascorbic Acid NEGATIVE (NEGATIVE) 11/24/20 04:00 Membranes Rupture NEGATIVE (NEGATIVE) 11/24/20 04:00 Urine Opiates Screen NEGATIVE 11/24/20 04:00 Urine Methadone Screen NEGATIVE 11/24/20 04:00 Ur Barbiturates Screen NEGATIVE 11/24/20 04:00 Ur Phencyclidine Scrn NEGATIVE 11/24/20 04:00 Ur Amphetamines Screen NEGATIVE 11/24/20 04:00 U Benzodiazepines Scrn NEGATIVE 11/24/20 04:00 Urine Cocaine Screen NEGATIVE 11/24/20 04:00 U Marijuana (THC) Screen NEGATIVE 11/24/20 04:00 RPR NONREACTIVE (NONREACTIVE) 11/24/20 05:51 Blood Type B POSITIVE 11/24/20 05:51 Antibody Screen NEGATIVE 11/24/20 05:51 Stroke Is this a Stroke Patient?: No Acute Heart Failure Is this a Heart Failure Patient?: No
[2020-11-27 11:34] VITALS: BP 98/63
== END 2020-11-27 12:50 | disposition home or self-care (01) | DRG 788 ==
LOC: LC 03:38 → LR 05:30 → 2S 14:10
PROVIDERS: ADMIT Obstetrics & Gynecology; ATTEND Obstetrics & Gynecology
PROC: 10D00Z1 Extraction of Products of Conception, Low, Open Approach (ICD-10-PCS; principal; 2020-11-24)
DX: O76 Abnormality in fetal heart rate and rhythm complicating labor and delivery (principal); O99.824 Streptococcus B carrier state complicating childbirth; Z20.822 Contact with and (suspected) exposure to COVID-19; O62.2 Other uterine inertia; O77.0 Labor and delivery complicated by meconium in amniotic fluid; O99.334 Smoking (tobacco) complicating childbirth; F17.210 Nicotine dependence, cigarettes, uncomplicated; Z88.0 Allergy status to penicillin; Z37.0 Single live birth; Z3A.39 39 weeks gestation of pregnancy
CPT/HCPCS: 1967; 1968; 36415; 80307; 81005; 84112; 85025; 85027; 86592; 86850; 86900; 86901; 94799; J0131; J0690; J1170; J1885; J2370; J2405; J2550; J2590; J2795; J3010; J3370; J3490; J7060